=== PATIENT | male | born 1945 | race Caucasian/White ===

== ENCOUNTER 2017-08-10 20:17 | Inpatient (IN) | payer MEDICARE, OTHER ==
--- NOTE | ~2017-08-10 | HEMODYNAMI ---
PATIENT:NISREEN GAR MEDICAL RECORD: [id number] : 43 [id number] ADMISSION DATE: 08/10/17 Generatedon:08/11/201710:02 Patient name: NISREEN GAR Patient #: [id number] SSN: : 1945 Date of study: 08/11/2017 Page: Of Hemodynamic Procedure Report Patient Data Patient Demographics Procedure consent was obtained First Name: NISREEN Gender: Male Last Name: RIN : 1945 [facility] Initial: R Age: 72 year(s) Patient #: [id number] Race: Unknown Additional ID: [id number] Contact details Address: [address] [place] [address] State: [place] City: [facility] Zip code: [address] Past Medical History Allergies Allergen Reaction Date Comments Reported Other allergy 08/11/2017 Metronidazole, oxycodone, Hydrocodone Admission Admission Data Admission Date: 08/10/2017 Admission Time: 23:14 Admit Source: Emergency department Room #: D.2121 Lab Results Lab Result Date: 08/11/2017 Lab Result Time: 3:05 Biochemistry Name Units Result Min Max BUN mg/dl 30 --(----)-* 7 18 Creatinine mg/dl 1.6 --(----)-* 0.6 1.3 CBC Name Units Result Min Max Hematocrit % 43.7 --(*---)-- 42 54 Hemoglobin g/dl 14.2 --(*---)-- 13.5 17.5 Procedure Procedure Types Cath Procedure Diagnostic Procedure LHC LH w/Coronaries PCI Procedure Coronary Stent Initial x2 Miscellaneous Procedures Moderate Sedation up to 45 minutes Procedure Description Procedure Date Procedure Date: 08/11/2017 Procedure Start Time: 9:17 Procedure End Time: 9:58 Procedure Staff Name Function Guillaume Prakash MD Performing Physician Zeke Castellanos RN Nurse Alberto Martinez RT Scrub Gabriel Montes RT Monitor Procedure Data Cath Procedure Fluoroscopy Diagnostic fluoroscopy Total fluoroscopy Time: time: 10.2 min 10.2 min Diagnostic fluoroscopy Total fluoroscopy dose: dose: 1633 mGy 1633 mGy Contrast Material Contrast Material Type Amount (ml) Isovue 300 218 Entry Location Entry Primary Successful Side Size Upsize Upsize Entry Closure Succes sful Closure Location (Fr) 1 (Fr) 2 (Fr) Remarks Device Remarks Femoral Right 5 Fr 6 Fr Exoseal artery Short Estimated blood loss: 10 ml Diagnostic catheters Device Type Used For End Catheter Placement Cordis 5Fr 3DRC Catheter Procedure (MP) Cordis 5Fr JL 4.0 Procedure Catheter (MP) Cordis 5Fr Pigtail Procedure Catheter (MP) Procedure Complications No complications Procedure Medications Medication Administration Route Dosage Oxygen NC 2 l/min Lidocaine 2% added to field 20 Heparin Flush Bag added to field 2 bags (1000units/500ml NS) 0.9% NaCl I.V. 200 ml/hr Versed I.V. 1 mg Fentanyl I.V. 50 mcg Versed I.V. 0.5 mg Fentanyl I.V. 25 mcg Heparin Bolus I.V. 9000 units Versed I.V. 0.5 mg Fentanyl I.V. 25 mcg Plavix P.O. 600 mg Hemodynamics Rest HGB: 14.2 (g/dl) Heart Rate: 64 (bpm) Pressure Samples Time Site Value (mmHg) Purpose Heart Use Rate(bpm) 9:25 AO 201/31(54) Snapshot 63 9:25 AO 134/74(96) Snapshot 68 9:28 LV 133/14,24 EDP 66 9:30 AO 136/73(98) Pullback 72 9:30 LV 116/10,22 Pullback 72 Gradients Valve Time Site 1 Site 2 Mean SEP/DFP Peak To Heart Use (mmHg) (sec/min) Peak Rate (mmHg) (bpm) Aortic 9:30 LV AO 0 1 0 72 116/10,22 136/73(98) Calculations Valve P-P Mean Valve Index Valve Source Name Gradient Area Flow (cm2) Aortic 0 0 0 0 Snapshots Pre Cath Intra NCS Post Cath Vital Signs Time Heart Resp SPO2 etCO2 GM1locu NIBP (mmHg) Rhythm Pain Sedation Rate (ipm) (%) (mmHg) (mmHg) Status Level (bpm) 9:09:44 65 19 97 0 0 145/79(120) NSR 0 (11) 10(A) , No pain 9:14:29 65 13 93 0 0 117/75(107) NSR 0 (11) 10(A) , No pain 9:19:49 64 15 95 0 0 137/80(106) NSR 0 (11) 10(A) , No pain 9:24:33 62 16 95 0 0 128/80(108) NSR 0 (11) 10(A) , No pain 9:29:12 67 14 94 0 0 125/74(99) NSR 0 (11) 9(A) , No pain 9:33:57 72 15 95 0 0 127/79(105) NSR 0 (11) 9(A) , No pain 9:38:41 70 14 96 0 0 129/74(102) NSR 0 (11) 9(A) , No pain 9:43:26 70 15 97 0 0 134/78(111) NSR 0 (11) 9(A) , No pain 9:48:13 71 16 96 0 0 133/72(111) NSR 0 (11) 9(A) , No pain 9:52:57 72 16 97 0 0 139/75(117) NSR 0 (11) 10(A) , No pain 9:57:44 69 16 96 0 0 138/82(117) NSR 0 (11) 10(A) , No pain Medications Time Medication Route Dose Verified Delivered Reason Notes Effectiveness by by 9:09:36 Oxygen NC 2 Guillaume Buffie used for l/min Vik Castellanos RN procedure 9:10:31 Lidocaine 2% added 20ml Guillaume Buffie for local to vial Vik Castellanos RN anesthetic field 9:10:39 Heparin Flush added 2 Guillaume Buffie used for Bag to bags Vik Castellanos RN procedure (1000units/500ml field NS) 9:10:49 0.9% NaCl I.V. 200 Guillaume Buffie Per physician ml/hr Vik Castellanos RN 9:12:24 Versed I.V. 1 mg Guillaume Buffie for sedation Vik Castellanos RN 9:12:31 Fentanyl I.V. 50 Guillaume Buffie for sedation mcg Vik Castellanos RN 9:23:25 Versed I.V. 0.5 Guillaume Buffie for sedation mg Vik Castellanos RN 9:23:30 Fentanyl I.V. 25 Guillaume Buffie for sedation mcg Vik Castellanos RN 9:35:16 Heparin Bolus I.V. 9000 Guillaume Buffie for verifi ed units Vik Castellanos RN anticoagulation with dr prakash 9:46:45 Versed I.V. 0.5 Guillaume Buffie for sedation mg Vik Castellanos RN 9:46:49 Fentanyl I.V. 25 Guillaume Buffie for sedation mcg Vik Castellanos RN 10:00:29 Plavix P.O. 600 Guillaume Buffie for mg Vik Castellanos RN antiplatelet therapy Procedure Log Time Note 8:37:46 Informed consent obtained and on chart 8:37:49 Admit Source: Emergency department 8:38:05 Diagnostic Cath status Urgent 8:38:08 Time tracking: Call back 8:38:13 Plan of Care:Hemodynamics will remain stable., Cardiac rhythm will remain stable., Comfort level will be maintained., Respiratory function will remain adequate., Patient/ family verbilizes understanding of procedure., Procedure tolerated without complication., Recovers from procedure without complications.. 8:38:18 H&P Date Dictated: 08/11/2017 New H&P dictated by physician.. 8:39:16 Lab Result : BUN 30 mg/dl 8:39:16 Lab Result : Hemoglobin 14.2 g/dl 8:39:16 Lab Result : Creatinine 1.6 mg/dl 8:39:16 Lab Result : Hematocrit 43.7 % 8:39:23 Alberto Martinez RT(R) sent for patient. Start room use. 8:54:12 Patient received from Med II to CCL 1 Alert and oriented. Tansferred to table in Supine position. 8:54:13 Warm blankets applied, and romulo hugger turned on for patient comfort. 8:54:13 Correct patient and procedure confirmed by team. 8:54:14 ECG and BP/O2 sat monitors applied to patient. 8:54:15 Pre-procedure instructions explained to patient. 8:54:16 Pre-op teaching completed and patient verbalized understanding. 8:54:19 Family in patients room. 8:54:20 Patient NPO since Midnight. 9:08:48 Vital chart was started 9:09:36 Oxygen 2 l/min NC was administered by Zeke Castellanos RN; used for procedure; 9:09:36 Patient allergic to Other allergyMetronidazole, oxycodone, Hydrocodone 9:09:39 Is the patient allergic to Iodine/contrast media? No. 9:09:40 Is patient on blood thinner?No 9:09:41 Patient diabetic? No. 9:09:44 Previous problem with sedation/anesthesia? No ? 9:09:46 Snore? Yes 9:09:47 Sleep apnea? No 9:09:48 Deviated septum? No 9:09:50 Opens mouth fully? Yes 9:09:51 Sticks out tongue? Yes 9:10:31 Lidocaine 2% 20ml vial added to field was administered by Zeke Castellanos RN; for local anesthetic; 9:10:38 Airway obstruction? Yes H lobectomy 9:10:39 Heparin Flush Bag (1000units/500ml NS) 2 bags added to field was administered by Zeke Castellanos RN; used for procedure; 9:10:48 Dentures? Yes in tight 9:10:49 0.9% NaCl 200 ml/hr I.V. was administered by Zeke Castellanos RN; Per physician; 9:11:02 Pre procedure: right dorsailis pedis pulse Inaccessible 9:11:06 Patient pain scale 3/10 ?. 9:11:14 IV patent on arrival in right antecubital with 0.9% NaCl at [facility]. 9:11:17 Lab results completed and on chart. 9:11:20 Right groin area was prepped with chlora-prep and draped in sterile fashion 9:11:39 Alarms reviewed by R. N. 9:11:39 Sharps counted by scrub and verified by R.N. 9:11:42 Use device set Femoral Dx 9:11:44 Tegaderm 4 x 4 opened to sterile field. 9:11:45 Acist Manifold opened to sterile field. 9:11:46 Acist Hand Control opened to sterile field. 9:11:47 Acist Syringe opened to sterile field. 9:11:47 Bag Decanter opened to sterile field. 9:11:48 Medline Cath Pack opened to sterile field. 9:11:48 Terumo 5Fr [facility] [place] Sheath opened to sterile field. 9:11:49 St Charlie 260cm J .035 wire opened to sterile field. 9:11:50 Diagnostic Infinity 5Fr Multipack catheter opened to sterile field. 9:11:55 Baseline sample Acquired. 9:12:00 Rhythm: sinus rhythm 9:12:02 Full Disclosure recording started 9:12:09 Physician arrived 9:12:11 --------ALL STOP TIME OUT------ 9:12:11 Final Timeout: patient, procedure, and site verified with staff and physician. All members of the team are in agreement. 9:12:13 Right groin site verified by team. 9:12:15 Physical assessment completed. ASA score P 3 - A patient with severe systemic disease as per Guillaume Prakash MD. 9:12:18 Sedation plan: IV Moderate Sedation Versed, Fentanyl 9:12:24 Versed 1 mg I.V. was administered by Zeke Castellanos RN; for sedation; 9::31 Fentanyl 50 mcg I.V. was administered by Zeke Castellanos RN; for sedation; 9:15:31 Zero performed for pressure channel P1 9:17:35 Procedure started. 9:17:37 Local anesthetic to right femoral artery with Lidocaine 2% by Guillaume Prakash MD.INITIAL ACCESS ONLY 9:18:25 A 5 Fr sheath was inserted into the Right Femoral artery 9:21:06 A Cordis 5Fr 3DRC Catheter (MP) was advanced over the wire and used for Procedure. 9:22:12 Terumo ANGLE 260cm glide wire opened to sterile field. 9:22:22 Terumo TORQUE DEVICE PLASTIC .038 opened to sterile field. 9:22:49 glide wire advanced. 9:23:01 Wire removed. 9:23:25 Versed 0.5 mg I.V. was administered by Zeke Castellanos RN; for sedation; 9:23:29 RCA angiography performed. 9:23:30 Fentanyl 25 mcg I.V. was administered by Zeke Castellanos RN; for sedation; 9:27:15 Catheter exchanged over wire. 9:27:19 A Cordis 5Fr JL 4.0 Catheter (MP) was advanced over the wire and used for Procedure. 9:27:22 LCA angiography performed. 9:27:24 Catheter exchanged over wire. 9:27:28 A Cordis 5Fr Pigtail Catheter (MP) was advanced over the wire and used for Procedure. 9:28:53 LV gram done using MAGAÑA 9::55 Injector settings: Ml/sec: 10, Volume: 20, 9:28:57 LV hemodynamics recorded. 9:30:10 EF : 45 % 9:30:35 Catheter removed. 9:31:16 High Pressure Extension Tubing (Vik) opened to sterile field. 9:31:17 Read BMW [place] 2 J-tip 300cm 0.014 guide wir opened to sterile field. 9:31:18 LookFlow BasixCompak Inflation Kit opened to sterile field. 9:31:19 Terumo 6Fr [facility] [place] Sheath opened to sterile field. 9:31:27 Cordis 6FR XBLAD 3.5 guide catheter opened to sterile field. 9:33:34 Sheath upsized to a 6 Fr Short. 9:33:41 6 Fr XBLAD 3.5 guide catheter was inserted over the wire 9:33:48 BMW wire advanced. 9:35:16 Heparin Bolus 9000 units I.V. was administered by Zeke Castellanos RN; for anticoagulation; verified with dr prakash 9:36:35 Wire advanced across lesion. 9:37:28 Inflation number: 1 A [place] Sci [place] 2.0 X 20 balloon was prepped and advanced across the Mid LAD, then inflated to 14 JEANINE for 0:18 (min:sec). 9:37:48 Inflation number: 2 The [place] Sci [place] 2.0 X 20 balloon was reinflated across the Mid LAD, to 14 JEANINE for 0:14 (min:sec). 9:38:54 Inflation number: 3 The [place] Sci [place] 2.0 X 20 balloon was reinflated across the Mid LAD, to 12 JEANINE for 0:18 (min:sec). 9:40:41 Balloon removed over the wire. 9:42:07 Inflation Number: 4 A Medtronic Integrity 2.5 X 26 stent was prepped and advanced across the Mid LAD. The stent was deployed at 12 JEANINE for 0:10 (min:sec). 9:42:14 Stent catheter was removed intact over wire. 9:44:55 Inflation Number: 5 A Medtronic Integrity 2.75 X 12 stent was prepped and advanced across the Mid LAD. The stent was deployed at 12 JEANINE for 0:10 (min:sec). 9:45:44 Wire redirected to CX. 9:46:29 Wire advanced across lesion. 9:46:45 Versed 0.5 mg I.V. was administered by Zeke Castellanos RN; for sedation; 9:46:49 Fentanyl 25 mcg I.V. was administered by Zeke Castellanos RN; for sedation; 9:47:17 Inflation number: 1 The stent balloon was then re-inflated across the Dist CX to 8 JEANINE for 0:12 (min:sec). 9:47:34 Stent catheter was removed intact over wire. 9:51:08 Inflation Number: 2 A Health in Reachtronic Integrity 3.0 X 30 stent was prepped and advanced across the Dist CX. The stent was deployed at 12 JEANINE for 0:13 (min:sec). 9:51:50 Stent catheter was removed intact over wire. 9:51:54 Wire removed. 9:51:54 Guide catheter removed. 9:52:00 Cordis 6Fr Exoseal opened to sterile field. 9:52:11 Sheath removed intact; hemostasis achieved with Exoseal to the Right Femoral artery. 9:52:12 Procedure ended.(Physican Out) 9:53:34 Fluoroscopy time 10.20 minutes. 9:53:38 Fluoroscopy dose: 1633 mGy 9:53:38 Flurop Dose total: 1633 9:53:42 Contrast amount:Isovue 300 218ml. 9:53:43 Sharps counted by scrub and verified by R.N. 9:53:44 Insertion/operative site no bleeding no hematoma. 9:53:47 Post-op/insertion site Right Femoral artery dressed using a 4 x 4 and Tegaderm. 9:53:51 Post right femoral artery:stable, soft, clean and dry 9:53:52 Post Procedure Pulses reassessed and unchanged 9:53:55 Post-procedure physical assessment completed. ASA score P 3 - A patient with severe systemic disease as per Guillaume Prakash MD. 9:53:58 Post procedure rhythm: unchanged. 9:54:01 Estimated blood loss: 10 ml 9:54:03 Post procedure instruction explained to patient.Patient verbalizes understanding. 9:54:03 Patient needs reinforcement of post procedure teaching. 9:54:16 Procedure type changed to Cath procedure, Diagnostic procedure, LHC, LHC w/Coronaries, PCI procedure, Coronary Stent Initial x2, Miscellaneous Procedures, Moderate Sedation up to 45 minutes 9:58:07 Procedure and supply charges have been captured, reviewed, submitted and are correct. 9:58:09 Procedure Complication : No complications 9:58:11 Vital chart was stopped 9:58:11 See physician's report for complete and final results. 9:58:12 Report given to PCU. 9:58:18 Patient transfered to PCU with Stretcher. 9:58:20 Procedure ended. 9:58:20 Full Disclosure recording stopped 9:59:06 End room use (Document Last) 10:00:29 Plavix 600 mg P.O. was administered by Zeke Castellanos RN; for antiplatelet therapy; Intervention Summary Intervention Notes Time ActionType Lesion and Equipment Action# Pressure Duration Attributes Used 9:37:28 Inflate Mid LAD [place] 1 14 00:18 balloon Sci [place] 2.0 X 20 balloon 9:37:48 Reinflate Mid LAD [place] 2 14 00:14 balloon Sci [place] 2.0 X 20 balloon 9:38:54 Reinflate Mid LAD [place] 3 12 00:18 balloon Sci [place] 2.0 X 20 balloon 9:42:07 Place stent Mid LAD Medtronic 4 12 00:10 Integrity 2.5 X 26 stent 9:44:55 Place stent Mid LAD Medtronic 5 12 00:10 Integrity 2.75 X 12 stent 9:47:17 Reinflate Dist CX Medtronic 1 8 00:12 stent Integrity balloon 2.75 X 12 stent 9:51:08 Place stent Dist CX Medtronic 2 12 00:13 Integrity 3.0 X 30 stent Device Usage Item Name Manufacture Quantity Catalog Number Hospital Part Current [facility] Lot# / Charge Number Stock Stock Serial# Code Tegaderm 4 1 [id number] 556080 842636 5 x 4 Acist Acist 1 13640 609706 262385 698513 5 [employer] Inc Acist Hand Acist 1 58803 899717 433012 097396 5 Control Medical Systems Inc Acist Acist 1 91769 004395 493922 110644 20 Syringe Medical Systems Mosaic [employer] Systems Bag Microtek 1 2001S 055747 07040 671805 5 Doctor Fun. Medline Cardinal 1 [id number] 368585 16719 071356 5 HYLT Aviation Terumo 5Fr Terumo 1 [id number] 302580 674131 003898 [address] [facility] Charlie 1 [id number] 486125 086306 598677 30 260cm J .035 wire Diagnostic Cardinal 1 [id number] 296110 66065 674358 30 Infinity Health 5Fr Multipack catheter Cordis 5Fr Cardinal 1 082058 5 3DRC Health Catheter (MP) Terumo Terumo 1 [id number] 387465 892220 945376 5 ANGLE 260cm glide wire Terumo [place] 1 TD01 205168 960304 595043 5 TORQUE Scientific DEVICE PLASTIC .038 Cordis 5Fr Cardinal 1 469511 5 JL 4.0 Health Catheter (MP) Cordis 5Fr Cardinal 1 083910 5 Pigtail Health Catheter (MP) High Merit 1 [id number] 520083 37570 751012 10 Pressure Medical Extension Tubing (Prakash) Read BMW Read 1 [id number] 240790 967516 851306 5 [place] 2 Vascular J-tip 300cm 0.014 guide wir Merit Merit 1 [id number] 941932 042806 286465 15 BasixCompak Medical Inflation Kit Terumo 6Fr Terumo 1 [id number] 048995 683968 487454 40 [facility] Sheath Cordis 6FR Cardinal 1 [id number] 216020 550571 325332 10 XBLAD 3.5 Health guide catheter [place] Sci [place] 1 [id number] 235277 070011 949506 1 [id number] Enhatch [employer] 2.0 X 20 balloon Medtronic Medtronic 1 [id number] 311133 048020 0 [id number] Integrity 2.5 X 26 stent Medtronic Medtronic 1 [id number] 506695 752500 4 [id number] Integrity 2.75 X 12 stent Medtronic Medtronic 1 [id number] 384429 943867 0 [id number] Integrity 3.0 X 30 stent Cordis 6Fr Cardinal 1 [id number] 517602 236797 660018 10 Big Fish Signature Audit [place] Stage Time Signature Unsigned Intra-Procedure 08/11/2017 Gabriel Montes 10:02:13 AM RT(R) Signatures Monitor : Gabriel Montes RT Signature : Date : Time : [facility] [address] [place] [id number]
--- NOTE | ~2017-08-10 | HEMODYNAMI ---
PATIENT:NISREEN GAR MEDICAL RECORD: [id number] : 43 LOCATION:[facility] D.2121 [id number] ADMISSION DATE: 08/10/17 Generatedon:08/13/20177:59 Patient name: NISREEN GAR Patient #: [id number] SSN: : 1945 Date of study: 08/13/2017 Page: Of Hemodynamic Procedure Report Patient Data Patient Demographics Procedure consent was obtained First Name: NISREEN Gender: Male Last Name: RIN : 1945 [facility] Initial: R Age: 72 year(s) Patient #: [id number] Race: Unknown Additional ID: [id number] Contact details [address]: [address] [place] [address] State: [place] City: [facility] Zip code: [address] Past Medical History Allergies Allergen Reaction Date Comments Reported Other allergy 08/11/2017 Metronidazole, oxycodone, Hydrocodone Admission Admission Data Admission Date: 08/10/2017 Admission Time: 23:14 Admit Source: Emergency department Room #: D.2121 Lab Results Lab Result Date: 08/11/2017 Lab Result Time: 3:05 Biochemistry Name Units Result Min Max BUN mg/dl 30 --(----)-* 7 18 Creatinine mg/dl 1.6 --(----)-* 0.6 1.3 CBC Name Units Result Min Max Hematocrit % 43.7 --(*---)-- 42 54 Hemoglobin g/dl 14.2 --(*---)-- 13.5 17.5 Procedure Procedure Types Cath Procedure PCI Procedure Coronary Stent Initial Miscellaneous Procedures Moderate Sedation up to 30 minutes Procedure Description Procedure Date Procedure Date: 08/13/2017 Procedure Start Time: 7:40 Procedure End Time: 7:59 Procedure Staff Name Function Guillaume Chery MD Performing Physician Torrie Ruiz RT Monitor Alberto Martinez RT Scrub Suzanne Castillo RT Scrub Tim Malcolm RN Nurse Procedure Data Cath Procedure Fluoroscopy Diagnostic fluoroscopy Total fluoroscopy Time: 5.6 time: 5.6 min min Diagnostic fluoroscopy Total fluoroscopy dose: 485 dose: 485 mGy mGy Contrast Material Contrast Material Type Amount (ml) Isovue 300 58 Entry Location Entry Primary Successful Side Size Upsize Upsize Entry Closure Succes sful Closure Location (Fr) 1 (Fr) 2 (Fr) Remarks Device Remarks Femoral Left 6 Fr Exoseal artery Short Estimated blood loss: 10 ml Procedure Complications No complications Procedure Medications Medication Administration Route Dosage 0.9% NaCl I.V. 100 ml/hr Oxygen NC 2 l/min Lidocaine 2% added to field 20 Heparin Flush Bag added to field 2 bags (1000units/500ml NS) Versed I.V. 1 mg Fentanyl I.V. 50 mcg Heparin Bolus 8900 units Hemodynamics Rest HGB: 14.2 (g/dl) Heart Rate: 70 (bpm) Snapshots Pre Cath Intra NCS Post Cath Vital Signs Time Heart Resp SPO2 etCO2 MR1hqkr NIBP (mmHg) Rhythm Pain Sedation Rate (ipm) (%) (mmHg) (mmHg) Status Level (bpm) 7:25:26 68 28 100 0 0 184/101(150) NSR 0 (11) 10(A) , No pain 7:30:21 68 19 100 0 0 169/93(144) NSR 0 (11) 10(A) , No pain 7:35:05 63 14 96 0 0 149/79(110) NSR 0 (11) 10(A) , No pain 7:39:50 64 13 96 0 0 140/83(115) NSR 0 (11) 9(A) , No pain 7:44:35 66 16 97 0 0 156/79(133) NSR 0 (11) 9(A) , No pain 7:49:22 71 15 97 0 0 152/71(108) NSR 0 (11) 9(A) , No pain 7:54:06 68 14 97 0 0 149/84(125) NSR 0 (11) 9(A) , No pain 7:58:53 68 18 97 0 0 155/84(123) NSR 0 (11) 9(A) , No pain Medications Time Medication Route Dose Verified Delivered Reason Notes Effectiveness by by 7:25:09 0.9% NaCl I.V. 100 Tim Tim Per physician ml/hr Yun Malcolm RN RN 7:25:25 Oxygen NC 2 Tim Tim Per physician l/min Yun Malcolm RN RN 7:25:44 Lidocaine 2% added 20ml Tim Tim for local to vial Yun Malcolm anesthetic field RN RN 7:26:04 Heparin Flush added 2 Tim Tim used for Bag to bags Yun Malcolm procedure (1000units/500ml field RN RN NS) 7:30:33 Versed I.V. 1 mg Tim Tim for sedation Yun Malcolm RN RN 7:30:47 Fentanyl I.V. 50 Tim Tim for sedation mcg Yun Malcolm RN RN 7:46:01 Heparin Bolus 8900 Tim Tim for units Yun Malcolm anticoagulation RN music therapist [employer] Log Time Note 7:00:49 Suzanne Castillo RT(R) sent for patient. Start room use. 7:09:50 Time tracking: Regular hours 7:09:55 Plan of Care:Hemodynamics will remain stable., Cardiac rhythm will remain stable., Comfort level will be maintained., Respiratory function will remain adequate., Patient/ family verbilizes understanding of procedure., Procedure tolerated without complication., Recovers from procedure without complications.. 7:17:35 Patient received from PCU to CCL 1 Alert and oriented. Tansferred to table in Supine position. 7:17:36 Warm blankets applied, and romulo hugger turned on for patient comfort. 7:17:37 Correct patient and procedure confirmed by team. 7:17:38 Signed procedure consent form obtained from patient. 7:17:39 ECG and BP/O2 sat monitors applied to patient. 7:24:24 Vital chart was started 7:25:09 0.9% NaCl 100 ml/hr I.V. was administered by Tim Malcolm RN; Per physician; 7:25:25 Oxygen 2 l/min NC was administered by Tim Malcolm RN; Per physician; 7:25:44 Lidocaine 2% 20ml vial added to field was administered by Tim Malcolm RN; for local anesthetic; 7:25:44 Rhythm: sinus rhythm 7:25:46 Full Disclosure recording started 7:25:56 H&P Date Dictated: 08/12/2017 Within 30 days and on chart.. 7:25:57 Pre-procedure instructions explained to patient. 7:25:58 Pre-op teaching completed and patient verbalized understanding. 7:25:59 Family in waiting room. 7:26:02 Patient NPO since Midnight. 7:26:04 Heparin Flush Bag (1000units/500ml NS) 2 bags added to field was administered by Tim Malcolm RN; used for procedure; 7:26:05 Baseline sample Acquired. 7:26:17 Is the patient allergic to Iodine/contrast media? No. 7:27:05 Is patient on blood thinner?Yes 7:27:07 ACC The patient was administered the following blood thiners within the last 24 hours: ACCAspirin, ACCPlavix 7:27:33 Patient diabetic? No. 7:27:37 Previous problem with sedation/anesthesia? No ? 7:27:39 Snore? Yes 7:27:40 Sleep apnea? No 7:27:41 Deviated septum? No 7:27:41 Opens mouth fully? Yes 7:27:42 Sticks out tongue? Yes 7:27:53 Airway obstruction? Yes Lobectomy 7:27:57 Dentures? Yes IN 7:28:00 Pre procedure: left dorsailis pedis pulse 1+ Palpable, but thready & weak; easily obliterated 7:28:03 Patient pain scale 0/10 ?. 7:28:10 IV patent on arrival in right forearm with 0.9% NaCl at [facility]. 7:28:42 Lab results completed and on chart. 7:28:45 Left groin area was prepped with chlora-prep and draped in sterile fashion 7:28:45 Alarms reviewed by R. N. 7:28:46 Sharps counted by scrub and verified by R.N. 7:28:50 Use device set Femoral PCI 7:28:51 Acist Syringe opened to sterile field. 7:28:52 Acist Hand Control opened to sterile field. 7:28:52 Bag Decanter opened to sterile field. 7:28:52 Medline Cath Pack opened to sterile field. 7:28:53 Terumo 6Fr Fitzwilliam Sheath opened to sterile field. 7:28:53 St Charlie 260cm J .035 wire opened to sterile field. 7:28:53 Merit BasixCompak Inflation Kit opened to sterile field. 7:28:53 Acist Manifold opened to sterile field. 7:28:54 Tegaderm 4 x 4 opened to sterile field. 7:29:03 Read BMW [place] 2 J-tip 300cm 0.014 guide wir opened to sterile field. 7:29:04 High Pressure Extension Tubing (Chery) opened to sterile field. 7:29:09 Final Timeout: patient, procedure, and site verified with staff and physician. All members of the team are in agreement. 7:29:11 Left groin site verified by team. 7:29:14 Physical assessment completed. ASA score P 2 - A patient with mild systemic disease as per Guillaume Chery MD. 7:29:16 Sedation plan: IV Moderate Sedation Versed, Fentanyl 7:30:33 Versed 1 mg I.V. was administered by Tim Malcolm RN; for sedation; 7:30:47 Fentanyl 50 mcg I.V. was administered by Tim Malcolm RN; for sedation; 7:36:13 Zero performed for pressure channel P1 7:36:17 Zero performed for pressure channel P1 7:36:19 Zero performed for pressure channel P1 7:40:30 Medtronic Launcher 6Fr AR 1.0 guide catheter opened to sterile field. 7:40:36 Procedure started. 7:40:56 Local anesthetic to left femerol artery with Lidocaine 2% by Guillaume Chery MD.INITIAL ACCESS ONLY 7:41:46 A 6 Fr Short sheath was inserted into the Left Femoral artery 7:42:33 6 Fr AR 1.0 guide catheter was inserted over the wire 7:45:07 BMW wire advanced. 7:46:01 Heparin Bolus 8900 units was administered by Tim Malcolm RN; for anticoagulation; 7:48:18 Inflation Number: 1 A Medtronic Integrity 3.0 X 30 stent was prepped and advanced across the Mid RCA. The stent was deployed at 14 JEANINE for 0:19 (min:sec). 7:49:05 Stent catheter was removed intact over wire. 7:52:59 Inflation Number: 2 A Medtronic Integrity 3.5 X 15 stent was prepped and advanced across the Mid RCA. The stent was deployed at 14 JEANINE for 0:15 (min:sec). 7:53:28 Inflation number: 3 The stent balloon was then re-inflated across the Mid RCA to 12 JEANINE for 0:13 (min:sec). 7:53:53 Stent catheter was removed intact over wire. 7:53:54 Wire removed. 7:53:54 Guide catheter removed. 7:54:07 Sheath removed intact; hemostasis achieved with Exoseal to the Left Femoral artery. 7:54:14 Cordis 6Fr Exoseal opened to sterile field. 7:54:17 Procedure ended.(Physican Out) 7:54:34 Fluoroscopy time 05.60 minutes. 7:54:56 Flurop Dose total: 485 7:54:56 Fluoroscopy dose: 485 mGy 7:54:59 Contrast amount:Isovue 300 58ml. 7:55:01 Sharps counted by scrub and verified by R.N. 7:55:02 Insertion/operative site no bleeding no hematoma. 7:55:06 Post-op/insertion site Left Femoral artery dressed using a 4 x 4 and Tegaderm. 7:55:09 Post left femerol artery:stable, clean and dry 7:55:11 Post Procedure Pulses reassessed and unchanged 7:55:15 Post-procedure physical assessment completed. ASA score P 2 - A patient with mild systemic disease as per Guillaume Chery MD. 7:55:30 Post procedure rhythm: unchanged. 7:55:33 Estimated blood loss: 10 ml 7:55:34 Post procedure instruction explained to patient.Patient verbalizes understanding. 7:55:34 Patient needs reinforcement of post procedure teaching. 7:55:41 Procedure type changed to Cath procedure, PCI procedure, Coronary Stent Initial, Miscellaneous Procedures, Moderate Sedation up to 30 minutes 7:55:46 Procedure Complication : No complications 7:55:48 See physician's report for complete and final results. 7:56:52 Procedure and supply charges have been captured, reviewed, submitted and are correct. 7:58:36 Vital chart was stopped 7:58:39 Report given to PCU. 7:58:42 Patient transfered to PCU with Bed. 7:59:00 Procedure ended. 7:59:00 Full Disclosure recording stopped 7:59:03 End room use (Document Last) Intervention Summary Intervention Notes Time ActionType Lesion and Equipment Action# Pressure Duration Attributes Used 7:48:18 Place stent Mid RCA Medtronic 1 14 00:19 Integrity 3.0 X 30 stent 7:52:59 Place stent Mid RCA Medtronic 2 14 00:15 Integrity 3.5 X 15 stent 7:53:28 Reinflate Mid RCA Medtronic 3 12 00:13 stent Integrity balloon 3.5 X 15 stent Device Usage Item Name Manufacture Quantity Catalog Hospital Part Current Minimal L ot# / Number Charge Number Stock Stock Serial# Code Acist Acist 1 [id number] 295934 212486 [id number] 20 Syringe Medical Systems Inc Acist Hand Acist 1 79929 241323 590975 463193 5 Control Medical Systems Inc Bag Microtek 1 2002S 826267 69190 679574 5 Decanter Medical Inc. Medline Cardinal 1 [id number] 212622 76913 469863 5 Cath Pack Health Terumo 6Fr Terumo 1 [id number] 770693 242233 805928 [address] Charlie 1 839229 809591 666141 240587 30 260cm J .035 wire Merit Merit 1 [id number] 208604 099250 083110 15 BasixPerlegen Sciencesk Medical Inflation Kit Acist Acist 1 15821 835220 453570 505938 5 Manifold Medical Systems Inc Tegaderm 4 3M 1 1626W 983285 692371 300871 5 x 4 Read BMW Read 1 [id number] 698108 647506 602127 5 [place] 2 Vascular J-tip 300cm 0.014 guide wir High Merit 1 [id number] 116073 98145 768598 10 Pressure Medical Extension Tubing (Chery) Medtronic Medtronic 1 [id number] 849341 44428 429423 1 Launcher 6Fr AR 1.0 guide catheter Medtronic Medtronic 1 [id number] 745141 623111 1 0 [id number] Integrity 3.0 X 30 stent Medtronic Medtronic 1 [id number] 917334 876642 1 0 [id number] Integrity 3.5 X 15 stent Cordis 6Fr Cardinal 1 [id number] 247517 496415 573306 10 [facility] Health Signature Audit Orange Stage Time Signature Unsigned Intra-Procedure 08/13/2017 Torrie 7:59:13 AM Counts RT(R) Signatures Monitor : Torrie Signature : Counts RT Date : Time : [facility] [address] [place] [address]
[2017-08-10 20:51] LABS: BASOPHILS 0.5 % (0-2); HEMATOCRIT 44.2 % (42.0-54.0); HEMOGLOBIN 14.4 g/dL (13.5-17.5); IMMATURE GRANULOCYTES 0.6 % (0-5); LYMPHOCYTES 19.6 % (15-50); MCH 28.9 pg (26.0-34.0); MCHC 32.6 g/dL (31.0-37.0); MCV 88.8 fL (80.0-100.0); MEAN PLATELET VOLUME 9.7 fL (7.4-10.4); MONOCYTES 4.1 % (2-11); NEUTROPHILS 72.2 % (40-80); PLATELET COUNT 136 10x3/uL (130-400); RBC 4.98 10x6/uL (4.20-6.10); WBC 6.3 10x3/uL (4.8-10.8)
[2017-08-10 21:05] LABS: ALBUMIN 3.7 g/dL (3.4-5.0); ALKALINE PHOSPHATASE 29 U/L (46-116); ALT (SGPT) 38 U/L (10-68); BILIRUBIN - TOTAL 0.42 mg/dL (0.2-1.3); CALC OSMOLALITY 283 mosm/kg (275-300); CALCIUM 9.4 mg/dL (8.5-10.1); CARBON DIOXIDE 24.1 mmol/L (21.0-32.0); CHLORIDE - SERUM 106 mmol/L (98-107); CREATININE - SERUM 1.6 mg/dL (0.6-1.3); GLUCOSE 107 mg/dL (74-106); POTASSIUM - SERUM 3.7 mmol/L (3.5-5.1); PROTEIN - SERUM 6.8 g/dL (6.4-8.2); SODIUM 140 mmol/L (136-145); UREA NITROGEN 27 mg/dL (7-18); eGFR NON AFRICAN AMERICAN 45 mL/min (90-120)
[2017-08-10 21:20] LABS: CHOL - HDL RATIO 4.9 ratio (2.3-4.9); CHOLESTEROL, TOTAL 178 mg/dL (0-200); CKMB 8.8 U/L (0.0-3.6); CREATINE KINASE 133 UL (21-232); HDL CHOLESTEROL 36 mg/dL (32-96); LDL CHOLESTEROL 101 mg/dL (0-100); LDL-HDL RATIO 2.8 ratio (1.5-3.5); TRIGLYCERIDE 208 mg/dL (30-200)
[2017-08-10 21:23] LABS: TROPONIN-I 1.101 ng/mL (0.000-0.060)
[2017-08-10 22:41] LABS: APTT 27.5 SECONDS (22.8-39.4); INR 0.99 (0.85-1.17); PROTIME 12.9 SECONDS (11.6-15.0)
[2017-08-11] VITALS: BP 136/82
[2017-08-11] MEDS ORDERED: MULTIPLE VITAMI1 TA1 PO (00:52)
[2017-08-11] MEDS ORDERED: AGGRENOX 200/251 CAP PO (00:52)
[2017-08-11] MEDS ORDERED: CELEBREX50 MG PO (00:52)
[2017-08-11] MEDS ORDERED: LOSARTAN POTASS25 MG PO (00:53)
[2017-08-11] MEDS ORDERED: DYAZIDE 37.5/251 CAP PO (00:53)
[2017-08-11] MEDS ORDERED: NIASPAN500 MG PO (00:54)
[2017-08-11] MEDS ORDERED: TRICOR145 MG PO (00:54)
--- NOTE | 2017-08-11 03:18 | NUR ---
RESTING WITH EYES CLOSED, RESPERATIONS EVEN, NO S/S DISTRESS NOTED.
--- NOTE | 2017-08-11 03:45 | NUR ---
RESTING WITH EYES CLOSED. RR EVEN U/L. NO S/S OF DISCOMFORT. CL IN REACH.
[2017-08-11 03:47] VITALS: BP 136/82; BMI 28.0
[2017-08-11 04:00] VITALS: BP 134/60
[2017-08-11 04:09] LABS: CKMB 21.7 U/L (0.0-3.6); CREATINE KINASE 197 UL (21-232)
[2017-08-11 04:11] LABS: TROPONIN-I 2.979 ng/mL (0.000-0.060)
--- NOTE | 2017-08-11 07:30 | NUR ---
RECEIVED PT IN BED AAOX4 RESP UNLABORED DENIES ANY NEEDS OR DISCOMFORT STATES I FEEL MUCH BETTER THIS MORNING
[2017-08-11 08:23] LABS: BASOPHILS 0.5 % (0-2); EOSINOPHILS 1.2 % (0-7); HEMATOCRIT 43.7 % (42.0-54.0); HEMOGLOBIN 14.2 g/dL (13.5-17.5); IMMATURE GRANULOCYTES 0.5 % (0-5); MCH 29.2 pg (26.0-34.0); MCHC 32.5 g/dL (31.0-37.0); MCV 89.9 fL (80.0-100.0); MEAN PLATELET VOLUME 10.5 fL (7.4-10.4); MONOCYTES 6.7 % (2-11); NEUTROPHILS 70.1 % (40-80); RBC 4.86 10x6/uL (4.20-6.10); RDW 14.3 % (11.5-14.5)
[2017-08-11 08:25] LABS: CALCIUM 9.1 mg/dL (8.5-10.1); CARBON DIOXIDE 22.5 mmol/L (21.0-32.0); CREATININE - SERUM 1.6 mg/dL (0.6-1.3); PLATELET COUNT 182 10x3/uL (130-400); WBC 8.2 10x3/uL (4.8-10.8)
[2017-08-11 08:26] LABS: POTASSIUM - SERUM 4.5 mmol/L (3.5-5.1)
--- NOTE | 2017-08-11 08:45 | NUR ---
TO STONE GRADER VIA BED
--- NOTE | 2017-08-11 10:20 | NUR ---
RECEIVED PT BACK TO ROOM FROM RESIDENT SERVICES DIRECTOR VIA BED VSS PPPX4 DRSG C/D/I TO RT MARTHA ANGULO NOTED
[2017-08-11 12:00] VITALS: BP 129/56
--- NOTE | 2017-08-11 14:17 | NUR ---
RESTING QUIETLY NAD NOTED
[2017-08-11 15:58] VITALS: BP 143/65
--- NOTE | 2017-08-11 19:00 | NUR ---
RECEIVED REPORT AND ASSUMED PT CARE FROM DAY SHIFT NURSE @ THIS TIME.
[2017-08-11 20:00] VITALS: BP 133/83
--- NOTE | 2017-08-11 23:58 | NUR ---
PT RESTING WELL WITHOUT C/O OR DISTRESS NOTED. FEW NEEDS VOICED. CALL LIGHT WITHIN REACH.
--- NOTE | 2017-08-12 01:04 | NUR ---
PT AWAKENS FROM SLEEP, REPORTS FEELING CHEST PAIN AND RATES @ 7/10 ON PAIN SCALE. MORPHINE 4 MG GIVEN WITH ZOFRAN 4 MG IV. AFTER 10 MINUTES PT REPORTS PAIN AT A 2/10 ON PAIN SCALE. WILL MONITOR.
[2017-08-12 06:33] VITALS: BP 127/61
[2017-08-12 07:07] LABS: CALCIUM 8.5 mg/dL (8.5-10.1); CARBON DIOXIDE 22.8 mmol/L (21.0-32.0); CREATININE - SERUM 1.8 mg/dL (0.6-1.3)
[2017-08-12 07:09] LABS: POTASSIUM - SERUM 4.8 mmol/L (3.5-5.1)
--- NOTE | 2017-08-12 07:30 | NUR ---
RECEIVED PT IN BED AAOX4 RESP UNLABORED PT DENIES ANY NEEDS OR DISCOMFORT AT THIS TIME NAD NOTED
[2017-08-12 08:12] LABS: BASOPHILS 0.2 % (0-2); EOSINOPHILS 2.2 % (0-7); HEMATOCRIT 41.7 % (42.0-54.0); HEMOGLOBIN 13.4 g/dL (13.5-17.5); IMMATURE GRANULOCYTES 0.5 % (0-5); LYMPHOCYTES 21.2 % (15-50); MCH 29.5 pg (26.0-34.0); MCHC 32.1 g/dL (31.0-37.0); MCV 91.6 fL (80.0-100.0); MEAN PLATELET VOLUME 10.7 fL (7.4-10.4); MONOCYTES 7.4 % (2-11); NEUTROPHILS 68.5 % (40-80); PLATELET COUNT 160 10x3/uL (130-400); RBC 4.55 10x6/uL (4.20-6.10); RDW 15.5 % (11.5-14.5); WBC 8.4 10x3/uL (4.8-10.8)
[2017-08-12 09:09] VITALS: BP 127/58
--- NOTE | 2017-08-12 10:32 | NUR ---
RATIONALE FOR SCD'S EXPLAINED. REFUSED SCD'S
[2017-08-12 12:42] VITALS: BP 155/68
[2017-08-12 16:39] VITALS: BP 142/65
[2017-08-12 19:00] VITALS: BP 183/72
[2017-08-13] VITALS: BP 153/68; BP 153/77
[2017-08-13 05:53] LABS: ANION GAP 12.5 mmol/L (8-16); CARBON DIOXIDE 30.2 mmol/L (21.0-32.0); CREATININE - SERUM 1.6 mg/dL (0.6-1.3); POTASSIUM - SERUM 3.7 mmol/L (3.5-5.1)
--- NOTE | 2017-08-13 07:19 | NUR ---
PRE-OPS GIVEN. TO FNPS BY BED.
[2017-08-13 08:00] VITALS: BP 141/75
--- NOTE | 2017-08-13 08:17 | NUR ---
BACK FROM FRANCHISE CONSULTANT. VS WNL. LEFT GROIN STABLE WITHOUT BLEEDING OR HEMATOMA NOTED. WILL MONITOR.
[2017-08-13] MEDS ORDERED: PRAVACHOL20 MG PO (10:03)
[2017-08-13] MEDS ORDERED: PLAVIX75 MG PO (10:04)
--- NOTE | 2017-08-13 12:19 | NUR ---
BACK FROM REGISTERED DIET TECHNICIAN. LEFT GROIN STABLE.
--- NOTE | 2017-08-13 13:09 | NUR ---
BED REST UP. LEFT GROIN STABLE. IV AND TELEMETRY DCD. DC PLANS GIVEN. UNDERSTANDING VOICED. ESCORTED TO CAR BY W/C.
--- NOTE | 2017-08-13 13:31 | NUR ---
Patient Name: INSREEN GAR Admission Status: ER Accout number: [id number] Admission Date: 08-10-2017 : 1945 Admission Diagnosis: Attending: HIMA WHITE Current LOS: 3 Anticipated DC Date: 08-13-2017 Planned Disposition: Home Primary Insurance: MEDICARE A & B LATE ENTRY: Discharge Planning Comments: * Is the patient Alert and Oriented? Yes 0 * How many steps to enter\exit or inside your home? NONE 0 * PCP NONE 0 * Pharmacy [facility] 0 * Preadmission Environment Home Alone 0 * ADLs Independent 0 * Equipment None 0 * Other Equipment NO MEDICAL EQUIPMENT PROVIDER PREFERENCE 0 * List name and contact numbers for known caregivers / representatives who currently or will assist patient after discharge: JANELL OROSCOE, FRIEND, 0 * Community resources currently utilized None 0 * Please name any agencies selected above. NONE 0 * Additional services required to return to the preadmission environment? No 0 * Can the patient safely return to the preadmission environment? Yes 0 * Has this patient been hospitalized within the prior 30 days at any hospital? No 0 CM MET WITH PT IN ROOM TO DISCUSS DISCHARGE PLANNING AND NEEDS. PT REPORTS LIVING AT HOME INDEPENDENTLY AND ALONE. PT HAS NO MEDICAL EQUIPMENT AND NO OUTSIDE SERVICES ASSISTING IN THE HOME. CM DISCUSSED AVAILABILITY OF HOME HEALTH, REHAB SERVICES AND MEDICAL EQUIPMENT. PT DENIES DISCHARGE NEEDS, REPORTS A FRIEND WILL PICK HIM UP TODAY FOR DISCHARGE HOME. IMPORTANT MESSAGE FROM MEDICARE PROVIDED AND EXPLAINED. Teacher [employer]: Max Florez
== END 2017-08-13 13:10 | disposition home or self-care (01) | DRG 248 ==
LOC: D.ER 20:17 → D.M2 23:14
PROVIDERS: Family Medicine; ADMIT Internal Medicine Cardiovascular Disease
PROC: 4A023N7 Measurement of Cardiac Sampling and Pressure, Left Heart, Percutaneous Approach (ICD-10-PCS; 2017-08-11)
PROC: B2111ZZ Fluoroscopy of Multiple Coronary Arteries using Low Osmolar Contrast (ICD-10-PCS; 2017-08-11)
PROC: B2151ZZ Fluoroscopy of Left Heart using Low Osmolar Contrast (ICD-10-PCS; 2017-08-11)
PROC: 02713FZ Dilation of Coronary Artery, Two Arteries with Three Intraluminal Devices, Percutaneous Approach (ICD-10-PCS; principal; 2017-08-11 08:39)
PROC: 02703EZ Dilation of Coronary Artery, One Artery with Two Intraluminal Devices, Percutaneous Approach (ICD-10-PCS; 2017-08-13)
DX: I21.4 Non-ST elevation (NSTEMI) myocardial infarction (principal); I50.21 Acute systolic (congestive) heart failure; I25.119 Atherosclerotic heart disease of native coronary artery with unspecified angina pectoris; M06.9 Rheumatoid arthritis, unspecified; I45.10 Unspecified right bundle-branch block; Z87.891 Personal history of nicotine dependence; Z86.711 Personal history of pulmonary embolism; Z86.73 Personal history of transient ischemic attack (TIA), and cerebral infarction without residual deficits; I11.0 Hypertensive heart disease with heart failure

== ENCOUNTER 2018-01-17 05:55 | Outpatient (CLI) | payer MEDICARE, OTHER ==
[~2018-01-17] VITALS: Ht 177.8 cm; Wt 88.6 kg
--- NOTE | ~2018-01-17 | HEMODYNAMI ---
PATIENT:NISREEN GAR MEDICAL RECORD: [id number] : 43 LOCATION:[facility] ADMISSION DATE: 01/17/18 Generatedon:01/17/20188:38 Patient name: NISREEN GAR Patient #: [id number] SSN: : 1945 Date of study: 01/17/2018 Page: Of Hemodynamic Procedure Report Patient Data Patient Demographics Procedure consent was obtained First Name: NISREEN Gender: Male Last Name: RIN : 1945 Middle Initial: R Age: 72 year(s) Patient #: [id number] Race: Unknown Additional ID: [id number] Contact details Address: [address] [place] [address] State: [place] City: [facility] Zip code: [address] Past Medical History Allergies Allergen Reaction Date Comments Reported Other allergy 08/11/2017 Metronidazole, oxycodone, Hydrocodone Other allergy 01/17/2018 Hydrocodone, Oxycodone, Flaygl Admission Admission Data Admission Date: 01/17/2018 Admission Time: 5:55 Admit Source: Other Lab Results Lab Result Date: 01/17/2018 Lab Result Time: 6:30 Biochemistry Name Units Result Min Max BUN mg/dl 31 --(----)-* 7 18 Creatinine mg/dl 2 --(----)-* 0.6 1.3 CBC Name Units Result Min Max Hematocrit % 45.2 --(-*--)-- 42 54 Hemoglobin g/dl 15 --(-*--)-- 13.5 17.5 Procedure Procedure Types Cath Procedure Diagnostic Procedure [facility] w/Coronaries Sedation Charges Moderate Sedation up to 30 minutes Procedure Description Procedure Date Procedure Date: 01/17/2018 Procedure Start Time: 8:03 Procedure End Time: 8:37 Procedure Staff Name Function Guillaume Chery MD Performing Physician Gabriel Montes RT Monitor Suzanne Castillo RT Scrub Zeke Castellanos RN Nurse Procedure Data Cath Procedure Fluoroscopy Diagnostic fluoroscopy Total fluoroscopy Time: 5.4 time: 5.4 min min Diagnostic fluoroscopy Total fluoroscopy dose: 604 dose: 604 mGy mGy Contrast Material Contrast Material Type Amount (ml) Isovue 300 69 Entry Location Entry Primary Successful Side Size Upsize Upsize Entry Closure Succes sful Closure Location (Fr) 1 (Fr) 2 (Fr) Remarks Device Remarks Femoral Right 5 Fr Exoseal artery Estimated blood loss: 5 ml Diagnostic catheters Device Type Used For End Catheter Placement MULTIPACK JL 4.0 5Fr Procedure catheter MULTIPACK 3DRC 5Fr Procedure catheter MULTIPACK Pigtail 5 Fr Procedure catheter Procedure Complications No complications Procedure Medications Medication Administration Route Dosage Oxygen NC 2 l/min Lidocaine 2% added to field 20 Heparin Flush Bag added to field 2 bags (1000units/500ml NS) 0.9% NaCl I.V. 100 ml/hr Versed I.V. 1 mg Fentanyl I.V. 50 mcg Versed I.V. 1 mg Fentanyl I.V. 50 mcg Fentanyl I.V. 50 mcg Fentanyl I.V. 50 mcg Hemodynamics Rest HGB: 15 (g/dl) Heart Rate: 67 (bpm) Pressure Samples Time Site Value (mmHg) Purpose Heart Use Rate(bpm) 8:27 LV 172/3,20 Snapshot 85 8:27 AO 161/77(115) Pullback 89 8:27 LV 151/0,12 Pullback 89 Gradients Valve Time Site 1 Site 2 Mean SEP/DFP Peak To Heart Use (mmHg) (sec/min) Peak Rate (mmHg) (bpm) Aortic 8:27 LV AO 0 9 0 89 151/0,12 161/77(115) Calculations Valve P-P Mean Valve Index Valve Source Name Gradient Area Flow (cm2) Aortic 0 0 0 0 Snapshots Pre Cath Intra NCS Post Cath Vital Signs Time Heart Resp SPO2 etCO2 NIBP (mmHg) Rhythm Pain Sedation Rate (ipm) (%) (mmHg) Status Level (bpm) 7:49:12 75 22 97 27.7 162/89(138) NSR 0 (11) 10(A) , No pain 7:54:03 72 19 99 31.5 172/97(146) NSR 0 (11) 10(A) , No pain 7:58:48 74 17 94 32.8 141/92(114) NSR 0 (11) 10(A) , No pain 8:03:28 80 17 94 28.9 146/100(126) NSR 0 (11) 9(A) , No pain 8:08:13 78 13 96 0 157/86(100) NSR 0 (11) 9(A) , No pain 8:13:39 77 15 93 28.4 142/85(116) NSR 0 (11) 9(A) , No pain 8:18:21 74 15 97 23 131/84(111) NSR 0 (11) 9(A) , No pain 8:23:02 80 16 96 20.2 136/84(119) NSR 0 (11) 9(A) , No pain 8:28:27 86 15 97 27.7 140/82(117) NSR 0 (11) 9(A) , No pain 8:33:10 85 15 98 24 146/84(111) NSR 0 (11) 10(A) , No pain 8:37:53 84 16 99 22.5 147/88(121) NSR 0 (11) 10(A) , No pain Medications Time Medication Route Dose Verified Delivered Reason Notes Effec tiveness by by 7:41:34 Oxygen NC 2 Guillaume Esa used for l/min Vik Jonas RN procedure 7:41:41 Lidocaine 2% added 20ml Guillaume Guillaume for local to vial Vik Chery MD anesthetic field 7:41:49 Heparin Flush added 2 Guillaume Guillaume used for Bag to bags Vik Chery MD procedure (1000units/500ml field NS) 7:41:58 0.9% NaCl I.V. 100 Guillaume Esa Per ml/hr Vik Jonas RN physician 7:58:47 Versed I.V. 1 mg Guillaume Esa for Vik Jonas RN sedation 7:58:53 Fentanyl I.V. 50 Guillaume Esa for kristin Jonas RN sedation 8:03:58 Versed I.V. 1 mg Guillaume Esa for Vik Jonas RN sedation 8:04:02 Fentanyl I.V. 50 Guillaume Esa for kristin Jonas RN sedation 8:17:30 Fentanyl I.V. 50 Guillaume Esa for kristin Jonas RN sedation 8:27:00 Fentanyl I.V. 50 Guillaume Esa for kristin Jonas RN sedation Procedure Log Time Note 7:20:11 Informed consent obtained and on chart 7:20:14 Admit Source: Other 7:20:29 Diagnostic Cath status Elective 7:20:34 Time tracking: Regular hours 7:20:37 Plan of Care:Hemodynamics will remain stable., Cardiac rhythm will remain stable., Comfort level will be maintained., Respiratory function will remain adequate., Patient/ family verbilizes understanding of procedure., Procedure tolerated without complication., Recovers from procedure without complications.. 7:21:49 H&P Date Dictated: 01/10/2018 Within 30 days and on chart., H&P Addendum completed by physician on day of procedure. (MUST COMPLETE FOR ALL OUTPATIENTS). 7:30:51 Lab Result : Hemoglobin 15 g/dl 7:30:51 Lab Result : Hematocrit 45.2 % 7:30:51 Lab Result : BUN 31 mg/dl 7:30:51 Lab Result : Creatinine 2 mg/dl 7:32:11 Gabriel Montes RT(R) sent for patient. Start room use. 7:39:54 Patient received from Pre/Post Procedure Room to CCL 1 Alert and oriented. Tansferred to table in Supine position. 7:39:55 Warm blankets applied, and romulo hugger turned on for patient comfort. 7:39:56 Correct patient and procedure confirmed by team. 7:39:58 ECG and BP/O2 sat monitors applied to patient. 7:41:34 Oxygen 2 l/min NC was administered by Esa Jonas RN; used for procedure; 7:41:41 Lidocaine 2% 20ml vial added to field was administered by Guillaume Chery MD; for local anesthetic; 7:41:49 Heparin Flush Bag (1000units/500ml NS) 2 bags added to field was administered by Guillaume Chery MD; used for procedure; 7:41:58 0.9% NaCl 100 ml/hr I.V. was administered by Esa Jonas RN; Per physician; 7:44:25 Pre-procedure instructions explained to patient. 7:44:25 Pre-op teaching completed and patient verbalized understanding. 7:44:27 Family unavailable. 7:44:30 Patient NPO since Midnight. 7:44:49 Patient allergic to Other allergyHydrocodone, Oxycodone, Flaygl 7:44:52 Is the patient allergic to Iodine/contrast media? No. 7:44:54 Is patient on blood thinner?No 7:44:55 Patient diabetic? No. 7:44:58 Previous problem with sedation/anesthesia? No ? 7:44:59 Snore? Yes 7:45:00 Sleep apnea? No 7:45:02 Deviated septum? No 7:45:02 Opens mouth fully? Yes 7:45:03 Sticks out tongue? Yes 7:45:33 Airway obstruction? 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 No ? 7:46:28 Pre procedure: right dorsailis pedis pulse 2+ Normal; easily identifiable; not easily obliterated 7:46:34 Patient pain scale 0/10 ?. 7:46:46 IV patent on arrival in left antecubital with 0.9% NaCl at O. 7:46:50 Lab results completed and on chart. 7:46:53 Right groin area was prepped with chlora-prep and draped in sterile fashion 7:46:54 Alarms reviewed by R. N. 7:46:54 Sharps counted by scrub and verified by R.N. 7:46:57 Use device set Femoral Dx 7:46:58 ACIST Syringe (89840) opened to sterile field. 7:46:59 Bag Decanter (2002S) opened to sterile field. 7:46:59 Medline Cath Pack ([id number]) opened to sterile field. 7:47:00 ACIST Hand Control (48322) opened to sterile field. 7:47:01 ACIST Manifold (35791) opened to sterile field. 7:47:01 DIAGNOSTIC Multipack 5Fr catheter set ([id number]) opened to sterile field. 7:47:02 Tegaderm 4 x 4 (1626W) opened to sterile field. 7:47:06 PERCUTANEOUS ENTRY 19GA needle opened to sterile field. 7:47:07 SHEATH 5FR [place] (HOX855) opened to sterile field. 7:47:07 DIAGNOSTIC WIRE .035 260cm J wire (096301) opened to sterile field. 7:47:15 Vital chart was started 7:54:32 Baseline sample Acquired. 7:54:35 Rhythm: sinus rhythm 7:54:38 Full Disclosure recording started 7:54:41 Physician arrived 7:54:42 --------ALL STOP TIME OUT------ 7:54:42 Final Timeout: patient, procedure, and site verified with staff and physician. All members of the team are in agreement. 7:54:50 Right groin site verified by team. 7:54:53 Physical assessment completed. ASA score P 3 - A patient with severe systemic disease as per Guillaume Chery MD. 7:54:59 Sedation plan: IV Moderate Sedation Medication:Versed, Fentanyl 7:58:47 Versed 1 mg I.V. was administered by Esa Jonas RN; for sedation; 7:58:53 Fentanyl 50 mcg I.V. was administered by Esa Jonas RN; for sedation; 7:59:17 Zero performed for pressure channel P1 8:03:51 Procedure started. 8:03:53 Local anesthetic to right femoral artery with Lidocaine 2% by Guillaume Chery MD.INITIAL ACCESS ONLY 8:03:58 Versed 1 mg I.V. was administered by Esa Jonas RN; for sedation; 8:04:02 Fentanyl 50 mcg I.V. was administered by Esa Jonas RN; for sedation; 8:07:00 WHOLEY 300cm 0.035 wire ([id number]) opened to sterile field. 8:07:11 wholey wire advanced for access. 8:07:47 Wire removed. 8:17:30 Fentanyl 50 mcg I.V. was administered by Esa Jonas RN; for sedation; 8:18:31 unable to gain access throught the right femoral artery. Moving to left. 8:18:40 Left groin area was prepped with chlora-prep and draped in sterile fashion 8:21:08 A 5 Fr sheath was inserted into the Right Femoral artery 8:21:58 A MULTIPACK JL 4.0 5Fr catheter was advanced over the wire and used for Procedure. 8:22:48 LCA angiography performed. 8:24:37 Catheter exchanged over wire. 8:24:41 A MULTIPACK 3DRC 5Fr catheter was advanced over the wire and used for Procedure. 8:25:22 RCA angiography performed. 8:25:49 Catheter exchanged over wire. 8:25:53 A MULTIPACK Pigtail 5 Fr catheter was advanced over the wire and used for Procedure. 8:27:00 Fentanyl 50 mcg I.V. was administered by Esa Jonas RN; for sedation; 8:27:14 LV gram done using MAGAÑA 8:27:16 Injector settings: Ml/sec: 10, Volume: 20, 8:27:29 LV hemodynamics recorded. 8:27:39 EF : 50 % 8:28:49 Abdominal Aortagram was performed. 8:28:55 Left leg runoff performed. 8:33:58 Catheter removed. 8:34:00 EXOSEAL 5Fr (EX500) opened to sterile field. 8:34:07 Sheath removed intact; hemostasis achieved with Exoseal to the Right Femoral artery. 8:34:08 Procedure ended.(Physican Out) 8:35:15 Fluoroscopy time 05.40 minutes. 8:35:26 Flurop Dose total: 604 8:35:26 Fluoroscopy dose: 604 mGy 8:35:28 Contrast amount:Isovue 300 69ml. 8:35:29 Sharps counted by scrub and verified by R.N. 8:36:37 Insertion/operative site no bleeding no hematoma. 8:36:40 Post-op/insertion site Right Femoral artery dressed using a 4 x 4 and Tegaderm. 8:36:43 Post right femoral artery:stable, soft, clean and dry 8:36:45 Post Procedure Pulses reassessed and unchanged 8:36:52 Post-procedure physical assessment completed. ASA score P 3 - A patient with severe systemic disease as per Guillaume Chery MD. 8:36:54 Post procedure rhythm: unchanged. 8:37:06 Estimated blood loss: 5 ml 8:37:08 Post procedure instruction explained to patient.Patient verbalizes understanding. 8:37:09 Patient needs reinforcement of post procedure teaching. 8:37:24 Procedure type changed to Cath procedure, Diagnostic procedure, LHC, LHC w/Coronaries, Sedation Charges, Moderate Sedation up to 30 minutes 8:37:39 Procedure and supply charges have been captured, reviewed, submitted and are correct. 8:37:41 Procedure Complication : No complications 8:37:42 Vital chart was stopped 8:37:44 See physician's report for complete and final results. 8:37:46 Report given to Pre/Post Procedure Room. 8:37:49 Patient transfered to Pre/Post Procedure Room with Stretcher. 8:37:51 Procedure ended. 8:37:51 Full Disclosure recording stopped 8:37:54 End room use (Document Last) Device Usage Item Name Manufacture Quantity Catalog Hospital Part Current Minimal Lot# / Number Charge Number Stock Stock Serial# Code ACIST Acist 1 36521 396309 302311 [id number] 20 Syringe Medical (66329) Systems Inc Bag Decanter Microtek 1 2001S 544978 12071 981114 5 (2001S) Medical Inc. Medline Cath Cardinal 1 [id number] 320335 20526 011611 5 Pack Health ([id number]) ACIST Hand Acist 1 77323 108009 994452 142080 5 Control Medical (20131) Systems Inc ACIST Acist 1 74678 734990 569172 403899 5 Manifold Medical (85416) Systems Inc DIAGNOSTIC Cardinal 1 [id number] 730450 01430 599384 30 Multipack Health 5Fr catheter set ([id number]) Tegaderm 4 x 3M 1 1626W 107260 169941 931813 5 4 (1626W) PERCUTANEOUS Cook [facility] 1 [id number] 545228 043820 5 ENTRY 19GA needle SHEATH 5FR Terumo 1 LOR910 963462 596379 628197 40 [place] (HZT084) DIAGNOSTIC [facility] 1 237543 626485 934986 408193 30 WIRE .035 260cm J wire (123646) WHOLEY 300cm Medtronic 1 [id number] 946937 745945 928950 3 0.035 wire ([id number]) MULTIPACK JL Cardinal 1 014683 5 4.0 5Fr Health catheter MULTIPACK Cardinal 1 403684 5 3DRC 5Fr Health catheter MULTIPACK Cardinal 1 180035 5 Pigtail 5 Fr Health catheter EXOSEAL 5Fr Cardinal 1 EX500 597485 402397 589999 10 (EX500) Health Signature Audit Accident Stage Time Signature Unsigned Intra-Procedure 01/17/2018 Gabriel Montes 8:38:20 AM RT(R) Signatures Monitor : Gabriel Montes RT Signature : Date : Time : [facility] [address] [place] [address]
[~2018-01-17 05:55] MED LIST: AGGRENOX 200/251 CAP PO; CELEBREX50 MG PO; DYAZIDE 37.5/251 CAP PO; LOSARTAN POTASS25 MG PO; MULTIPLE VITAMI1 TA1 PO; NIASPAN500 MG PO; PLAVIX75 MG PO; PRAVACHOL20 MG PO; TRICOR145 MG PO
[2018-01-17 06:29] VITALS: BP 187/80; Ht 177.8 cm; Wt 88.6 kg
[2018-01-17 06:44] LABS: BASOPHILS 0.5 % (0-2); EOSINOPHILS 3.2 % (0-7); HEMATOCRIT 45.2 % (42.0-54.0); IMMATURE GRANULOCYTES 0.7 % (0-5); LYMPHOCYTES 26.3 % (15-50); MCH 29.1 pg (26.0-34.0); MCHC 33.2 g/dL (31.0-37.0); MCV 87.6 fL (80.0-100.0); MONOCYTES 10.4 % (2-11); NEUTROPHILS 58.9 % (40-80); PLATELET COUNT 175 10x3/uL (130-400); RBC 5.16 10x6/uL (4.20-6.10); RDW 14.7 % (11.5-14.5); WBC 5.6 10x3/uL (4.8-10.8)
[2018-01-17 06:46] LABS: ANION GAP 13.2 mmol/L (8-16); CALCIUM 9.4 mg/dL (8.5-10.1); CARBON DIOXIDE 24.8 mmol/L (21.0-32.0)
== END 2018-01-17 11:30 | disposition home or self-care (01) ==
LOC: D.CATH 05:55
PROVIDERS: Internal Medicine Cardiovascular Disease
DX: I25.119 Atherosclerotic heart disease of native coronary artery with unspecified angina pectoris (principal); T82.855A Stenosis of coronary artery stent, initial encounter; R94.4 Abnormal results of kidney function studies; Z01.812 Encounter for preprocedural laboratory examination

== ENCOUNTER → 2018-02-07 12:55 | Outpatient (CLI) | payer MEDICARE, OTHER ==
[2018-01-17 06:29] VITALS: BMI 28.0
[~2018-02-07 12:55] MED LIST changes: +XARELTO15 MG PO; +XARELTO20 MG PO
== END | disposition home or self-care (01) ==
LOC: D.US 12:55
DX: R60.0 Localized edema (principal)

== ENCOUNTER 2018-02-07 13:42 | Inpatient (IN) | payer MEDICARE, OTHER ==
[2018-01-17 06:29] VITALS: Wt 88.3 kg
--- NOTE | ~2018-02-07 | HEMODYNAMI ---
PATIENT:NISREEN GAR MEDICAL RECORD: [id number] : 43 LOCATION:[facility] D.2103 ADMISSION DATE: 02/08/18 Generatedon:02/11/20188:35 Patient name: NISREEN GAR Patient #: [id number] SSN: : 1945 Date of study: 02/11/2018 Page: Of Hemodynamic Procedure Report Patient Data Patient Demographics Procedure consent was obtained First Name: NISREEN Gender: Male Last Name: RIN : 1945 [facility] Initial: R Age: 73 year(s) Patient #: [id number] Race: Unknown Additional ID: [id number] Contact details Address: [address] [place] [address] State: [place] City: [facility] Zip code: [address] Past Medical History Allergies Allergen Reaction Date Comments Reported Other allergy 08/11/2017 Metronidazole, oxycodone, Hydrocodone Other allergy 01/17/2018 Hydrocodone, Oxycodone, Flaygl Admission Admission Data Admission Date: 02/08/2018 Admission Time: 16:24 Room #: D.2103 Procedure Procedure Types Cath Procedure Diagnostic Procedure Sedation Charges Moderate Sedation up to 15 minutes PCI Procedure PTCA PTCA Initial x2 Procedure Description Procedure Date Procedure Date: 02/11/2018 Procedure Start Time: 8:02 Procedure End Time: 8:35 Procedure Staff Name Function Guillaume Prakash MD Performing Physician Torrie Ruiz RT Monitor Zeke Castellanos RN Nurse Gabriel Montes RT Scrub Procedure Data Cath Procedure Fluoroscopy Diagnostic fluoroscopy Total fluoroscopy Time: 8.2 time: 8.2 min min Diagnostic fluoroscopy Total fluoroscopy dose: 981 dose: 981 mGy mGy Contrast Material Contrast Material Type Amount (ml) Isovue 300 96 Entry Location Entry Primary Successful Side Size Upsize Upsize Entry Closure Succes sful Closure Location (Fr) 1 (Fr) 2 (Fr) Remarks Device Remarks Femoral Right 6 Fr Exoseal artery Short Estimated blood loss: 10 ml Procedure Complications No complications Procedure Medications Medication Administration Route Dosage Oxygen NC 2 l/min Lidocaine 2% added to field 20 0.9% NaCl I.V. 100 ml/hr Versed I.V. 1 mg Fentanyl I.V. 50 mcg Versed I.V. 1 mg Fentanyl I.V. 50 mcg Heparin Bolus I.V. 8500 units Plavix P.O. 600 mg Hemodynamics Rest Heart Rate: 80 (bpm) Snapshots Pre Cath Intra NCS Post Cath Vital Signs Time Heart Resp SPO2 etCO2 NIBP (mmHg) Rhythm Pain Sedation Rate (ipm) (%) (mmHg) Status Level (bpm) 7:50:31 70 18 97 0 176/103(133) NSR 0 (11) 10(A) , No pain 7:55:55 82 24 98 7.5 169/100(145) NSR 0 (11) 10(A) , No pain 8:00:43 86 22 98 25.5 169/83(129) NSR 0 (11) 10(A) , No pain 8:05:30 84 13 95 0 159/92(136) NSR 0 (11) 9(A) , No pain 8:10:17 75 14 95 12 155/68(120) NSR 0 (11) 9(A) , No pain 8:15:04 74 12 96 29.2 160/95(121) NSR 0 (11) 9(A) , No pain 8:20:23 90 13 95 33.8 158/96(118) NSR 0 (11) 9(A) , No pain 8:25:04 48 14 95 40.5 140/92(132) NSR 0 (11) 9(A) , No pain 8:29:44 93 17 95 35.87 154/93(116) NSR 0 (11) 10(A) , No pain 8:34:31 89 16 98 35.3 170/90(139) NSR 0 (11) 9(A) , No pain Medications Time Medication Route Dose Verified Delivered Reason Notes Eff ectiveness by by 8:00:10 Oxygen NC 2 Guillaume Buffie used for l/min Vik Castellanos RN procedure 8:00:18 Lidocaine added 20ml Guillaume Guillaume for local 2% to vial Vik Prakash MD anesthetic field 8:01:04 0.9% NaCl I.V. 100 Guillaume Buffie Per physician ml/hr Vik Castellanos RN 8:01:10 Versed I.V. 1 mg Guillaume Buffie for sedation Vik Castellanos RN 8:01:16 Fentanyl I.V. 50 Guillaume Buffie for sedation mcg Vik Castellanos RN 8:04:46 Versed I.V. 1 mg Guillaume Buffie for sedation Vik Castellanos RN 8:04:50 Fentanyl I.V. 50 Guillaume Buffie for sedation mcg Vik Castellanos RN 8:10:13 Heparin I.V. 8,500 Guillaume Buffie for verified Bolus units Vik Castellanos RN anticoagulation with dr prakash 8:34:25 Plavix P.O. 600 Guillaume Buffie for mg Vik Castellanos RN antiplatelet therapy Procedure Log Time Note 7:25:08 Time tracking: Regular hours 7:25:12 Plan of Care:Hemodynamics will remain stable., Cardiac rhythm will remain stable., Comfort level will be maintained., Respiratory function will remain adequate., Patient/ family verbilizes understanding of procedure., Procedure tolerated without complication., Recovers from procedure without complications.. 7:25:59 Torrie Counts RT(R) sent for patient. Start room use. 7:40:43 Patient received from PCU to CCL 1 Alert and oriented. Tansferred to table in Supine position. 7:40:43 Warm blankets applied, and romulo hugger turned on for patient comfort. 7:40:44 Correct patient and procedure confirmed by team. 7:40:45 Signed procedure consent form obtained from patient. 7:40:45 ECG and BP/O2 sat monitors applied to patient. 7:48:44 Vital chart was started 7:48:46 Rhythm: sinus rhythm 7:48:48 Full Disclosure recording started 7:48:55 H&P Date Dictated: 02/10/2018 Within 30 days and on chart.. 7:48:56 Pre-procedure instructions explained to patient. 7:48:57 Pre-op teaching completed and patient verbalized understanding. 7:48:58 Family unavailable. 7:49:00 Patient NPO since Midnight. 7:49:15 Is the patient allergic to Iodine/contrast media? No. 7:49:17 Is patient on blood thinner?Yes 7:49:22 ACC The patient was administered the following blood thiners within the last 24 hours: ACCLovenox 7:49:33 Patient diabetic? No. 7:49:37 Previous problem with sedation/anesthesia? No ? 7:49:39 Snore? Yes 7:49:40 Sleep apnea? No 7:49:42 Deviated septum? No 7:49:43 Opens mouth fully? Yes 7:49:44 Sticks out tongue? Yes 7:49:45 Airway obstruction? No ? 7:49:53 Dentures? Yes IN 7:49:57 Pre procedure: right dorsailis pedis pulse 2+ Normal; easily identifiable; not easily obliterated 7:49:59 Patient pain scale 0/10 ?. 7:50:05 IV patent on arrival in right hand with 0.9% NaCl at [facility]. 7:50:08 Lab results completed and on chart. 7:50:21 Right groin area was prepped with chlora-prep and draped in sterile fashion 7:50:22 Sharps counted by scrub and verified by R.N. 7:50:22 Alarms reviewed by R. N. 7:57:29 Final Timeout: patient, procedure, and site verified with staff and physician. All members of the team are in agreement. 7:57:30 Right groin site verified by team. 7:57:32 Physical assessment completed. ASA score P 2 - A patient with mild systemic disease as per Guillaume Prakash MD. 7:57:35 Sedation plan: IV Moderate Sedation Medication:Versed, Fentanyl 8:00:10 Oxygen 2 l/min NC was administered by Zeke Castellanos RN; used for procedure; 8:00:18 Lidocaine 2% 20ml vial added to field was administered by Guillaume Prakash MD; for local anesthetic; 8:01:04 0.9% NaCl 100 ml/hr I.V. was administered by Zeke Castellanos RN; Per physician; 8:01:10 Versed 1 mg I.V. was administered by Zeke Castellanos RN; for sedation; 8:01:16 Fentanyl 50 mcg I.V. was administered by Zeke Castellanos RN; for sedation; 8:01:18 Zero performed for pressure channel P1 8:01:54 Procedure started. 8:02:00 Local anesthetic to right femoral artery with Lidocaine 2% by Guillaume Prakash MD.INITIAL ACCESS ONLY 8:02:25 Baseline sample Acquired. 8:03:22 A 6 Fr Short sheath was inserted into the Right Femoral artery 8:03:36 GUIDE 6FR AR 1.0 catheter ([id number]) opened to sterile field. 8:03:36 GUIDE 6FR XBLAD 3.5 catheter ([id number]) opened to sterile field. 8:03:43 Use device set CATH PACK 8:03:44 ACIST Syringe (64130) opened to sterile field. 8:03:44 ACIST Hand Control (47151) opened to sterile field. 8:03:45 ACIST Manifold (61302) opened to sterile field. 8:03:45 Medline Cath Pack ([id number]) opened to sterile field. 8:03:46 Bag Decanter (2002S) opened to sterile field. 8:03:46 DIAGNOSTIC WIRE .035 260cm J wire (087785) opened to sterile field. 8:03:52 PERCUTANEOUS ENTRY 19GA needle opened to sterile field. 8:03:55 Use device set PRAKASH PCI 8:03:59 TUBING High Pressure Extension Tubing (Vik) ([id number]) opened to sterile field. 8:04:00 INFLATOR Merit BasixCompak (GT3435) opened to sterile field. 8:04:08 BMW 300cm Ashton 2 J wire ([id number]) opened to sterile field. 8:04:46 Versed 1 mg I.V. was administered by Zeke Castellanos RN; for sedation; 8:04:50 Fentanyl 50 mcg I.V. was administered by Zeke Castellanos RN; for sedation; 8:07:15 6 Fr XBLAD 3.5 guide catheter was inserted over the wire 8:07:53 LCA angiography performed. 8:08:44 BMW wire advanced. 8:10:13 Heparin Bolus 8,500 units I.V. was administered by Zeke Castellanos RN; for anticoagulation; verified with dr prakash 8:12:15 Inflate balloon Inflation number: 1 A MAVERICK 2.5 X 20 balloon ( [id number]) was prepped and advanced across the Mid LAD, then inflated to 10 JEANINE for 0:12 (min:sec). 8:12:40 Inflation number: 2 The MAVERICK 2.5 X 20 balloon ( [id number]) was reinflated across the Mid LAD, to 10 JEANINE for 0:16 (min:sec). 8:13:23 Inflation number: 3 The MAVERICK 2.5 X 20 balloon ( [id number]) was reinflated across the Mid LAD, to 14 JEANINE for 0:35 (min:sec). 8:13:59 Inflation number: 4 The MAVERICK 2.5 X 20 balloon ( [id number]) was reinflated across the Mid LAD, to 14 JEANINE for 0:22 (min:sec). 8:15:27 Inflation number: 5 The MAVERICK 2.5 X 20 balloon ( [id number]) was reinflated across the Mid LAD, to 14 JEANINE for 0:18 (min:sec). 8:18:48 Balloon removed over the wire. 8:18:48 Wire removed. 8:18:48 Guide catheter removed. 8:18:59 9 Fr ? guide catheter was inserted over the wire 8:19:17 Procedure type changed to Cath procedure, Diagnostic procedure, Sedation Charges, Moderate Sedation up to 15 minutes, PCI procedure, PTCA, PTCA Initial x2 8:19:26 6 Fr AR 1.0 guide catheter was inserted over the wire 8:21:07 BMW wire advanced. 8:24:56 Inflation number: 1 The MAVERICK 3.0 X 30 balloon ([id number]) was reinflated across the Mid RCA, to 13 JEANINE for 0:28 (min:sec). 8:26:02 Inflation number: 3 The MAVERICK 3.0 X 30 balloon ([id number]) was reinflated across the Mid RCA, to 14 JEANINE for 0:23 (min:sec). 8:27:17 Balloon removed over the wire. 8:27:21 Wire removed. 8:27:22 Guide catheter removed. 8:27:55 EXOSEAL 6Fr (EX600) opened to sterile field. 8:28:09 Sheath removed intact; hemostasis achieved with Exoseal to the Right Femoral artery. 8:28:11 Procedure ended.(Physican Out) 8:28:41 Fluoroscopy time 08.20 minutes. 8:28:45 Flurop Dose total: 981 8:28:45 Fluoroscopy dose: 981 mGy 8:28:53 Contrast amount:Isovue 300 96ml. 8:28:55 Sharps counted by scrub and verified by R.N. 8:28:57 Insertion/operative site no bleeding no hematoma. 8:28:59 Post-op/insertion site Right Femoral artery dressed using a 4 x 4 and Tegaderm. 8:29:02 Post right femoral artery:stable, clean and dry 8:29:04 Post Procedure Pulses reassessed and unchanged 8:29:07 Post-procedure physical assessment completed. ASA score P 2 - A patient with mild systemic disease as per Guillaume Prakash MD. 8:30:00 Post procedure rhythm: unchanged. 8:30:02 Estimated blood loss: 10 ml 8:30:04 Post procedure instruction explained to patient.Patient verbalizes understanding. 8:30:05 Patient needs reinforcement of post procedure teaching. 8:30:14 Procedure Complication : No complications 8:30:16 See physician's report for complete and final results. 8:30:36 Tegaderm 4 x 4 (1626W) opened to sterile field. 8:31:26 SHEATH 6Fr Prelude ([id number]) opened to sterile field. 8:32:01 IV Extension Set opened to sterile field. 8:33:18 Procedure and supply charges have been captured, reviewed, submitted and are correct. 8:34:25 Plavix 600 mg P.O. was administered by Zeke Castellanos RN; for antiplatelet therapy; 8:35:01 Vital chart was stopped 8:35:03 Report given to PCU. 8:35:06 Patient transfered to PCU with Bed. 8:35:14 Procedure ended. 8:35:14 Full Disclosure recording stopped 8:35:17 End room use (Document Last) Intervention Summary Intervention Notes Time ActionType Lesion and Equipment Action# Pressure Duration Attributes Used 8:12:15 Inflate Mid LAD MAVERICK 2.5 1 10 00:12 balloon X 20 balloon ( [id number]) 8:12:40 Reinflate Mid LAD MAVERICK 2.5 2 10 00:16 balloon X 20 balloon ( [id number]) 8:13:23 Reinflate Mid LAD MAVERICK 2.5 3 14 00:35 balloon X 20 balloon ( [id number]) 8:13:59 Reinflate Mid LAD MAVERICK 2.5 4 14 00:22 balloon X 20 balloon ( [id number]) 8:15:27 Reinflate Mid LAD MAVERICK 2.5 5 14 00:18 balloon X 20 balloon ( [id number]) 8:24:56 Reinflate Mid RCA MAVERICK 3.0 1 13 00:28 balloon X 30 balloon ([id number]) 8:26:02 Reinflate Mid RCA MAVERICK 3.0 3 14 00:23 balloon X 30 balloon ([id number]) Device Usage Item Name Manufacture Quantity Catalog Number Hospital Part Current Min imal Lot# / Charge Number Stock Stock Serial# Code GUIDE 6FR AR Medtronic 1 [id number] [id number] [id number] 1 1.0 catheter ([id number]) GUIDE 6FR Cardinal 1 [id number] 310216 899646 753940 10 XBLAD 3.5 Health catheter (52436096) ACIST Acist 1 89927 723824 639418 216873 20 Syringe Medical (01237) Systems Inc ACIST Hand Acist 1 04405 391322 569541 575242 5 Control Medical (92504) Systems Inc ACIST Acist 1 32856 947003 487780 455136 5 Manifold Medical (42059) Systems Inc Medline Cath Cardinal 1 [id number] 761592 49608 826771 5 Pack Health ([id number]) Bag Decanter Microtek 1 2001S 542036 00041 708710 5 (2001S) Medical Inc. DIAGNOSTIC St Charlie 1 651168 728924 629464 356382 30 WIRE .035 260cm J wire (723583) PERCUTANEOUS Cook Medical 1 O43600 074772 160367 5 ENTRY 19GA needle TUBING High Merit 1 [id number] 677482 19391 754326 10 Pressure Medical Extension Tubing (Prakash) (DL4864X) INFLATOR Merit 1 PF1973 058439 330633 642173 15 [facility] Medical BasixCompak (XT2360) BMW 300cm Read 1 [id number] 905191 377344 540993 5 Ashton 2 Vascular J wire (7311847X) MAVERICK 2.5 Ketchum 1 [id number] 026030 963899 591978 1 25792024 X 20 balloon Scientific ( [id number]) MAVERICK 3.0 Ketchum 1 [id number] 711083 187201 840634 1 93694538 X 30 balloon Scientific ([id number]) EXOSEAL 6Fr Cardinal 1 EX600 847221 706097 498262 10 (EX600) Health Tegaderm 4 x 3M 1 1626W 588536 197386 341893 5 4 (1626W) SHEATH 6Fr Merit 1 [id number] 711664 563750 435952 5 Prelude Medical ([id number]) IV Extension Hospira 1 220813 57353 462643 5 Set Signature Audit Scalf Stage Time Signature Unsigned Intra-Procedure 02/11/2018 Torrie 8:35:27 AM Counts RT(R) Signatures Monitor : Torrie Signature : Counts RT Date : Time : [id number] [place] [address]
[~2018-02-07 13:42] MED LIST changes: -XARELTO15 MG PO; -XARELTO20 MG PO
[2018-02-07 14:52] LABS: BASOPHILS 0.8 % (0-2); EOSINOPHILS 2.1 % (0-7); HEMATOCRIT 43.8 % (42.0-54.0); HEMOGLOBIN 14.7 g/dL (13.5-17.5); IMMATURE GRANULOCYTES 0.5 % (0-5); LYMPHOCYTES 26.2 % (15-50); MCH 29.3 pg (26.0-34.0); MCHC 33.6 g/dL (31.0-37.0); MCV 87.4 fL (80.0-100.0); MEAN PLATELET VOLUME 9.9 fL (7.4-10.4); MONOCYTES 8.7 % (2-11); NEUTROPHILS 61.7 % (40-80); PLATELET COUNT 142 10x3/uL (130-400); RBC 5.01 10x6/uL (4.20-6.10); RDW 14.3 % (11.5-14.5); WBC 6.1 10x3/uL (4.8-10.8)
[2018-02-07 15:02] LABS: D-DIMER-QUANTITATIVE 1.7 ug/mLFEU (0.20-0.54)
[2018-02-07 15:09] LABS: APTT 27.3 SECONDS (22.8-39.4); INR 1.02 (0.85-1.17)
[2018-02-07 16:28] LABS: ANION GAP 16.2 mmol/L (8-16); BILIRUBIN - TOTAL 0.4 mg/dL (0.2-1.3); CALCIUM 9.4 mg/dL (8.5-10.1); CARBON DIOXIDE 22.3 mmol/L (21.0-32.0); CREATININE - SERUM 2.1 mg/dL (0.6-1.3); POTASSIUM - SERUM 4.5 mmol/L (3.5-5.1); PROTEIN - SERUM 7.2 g/dL (6.4-8.2)
[2018-02-08 04:00] VITALS: BP 160/69
[2018-02-08 09:56] VITALS: BP 153/79
[2018-02-08 12:23] VITALS: BP 173/88
[2018-02-08 16:59] VITALS: BP 152/76
[2018-02-08 18:59] LABS: APPEARANCE CLEAR (CLEAR); BILIRUBIN NEGATIVE (NEGATIVE); COLOR YELLOW (YELLOW); GLUCOSE NEGATIVE (NEGATIVE); KETONE NEGATIVE (NEGATIVE); NITRITE NEGATIVE (NEGATIVE); PROTEIN NEGATIVE (NEGATIVE); UROBILINOGEN NORMAL (NORMAL)
[2018-02-08 19:08] LABS: CREATININE - URINE 104.5 mg/dL (30-125); PROTEIN - URINE 20.6 mg/dL (0.0-11.9)
[2018-02-08 20:33] VITALS: BP 166/72
[2018-02-09 00:41] VITALS: BP 134/68
[2018-02-09 05:40] LABS: BASOPHILS 0.6 % (0-2); EOSINOPHILS 3.6 % (0-7); HEMATOCRIT 44.7 % (42.0-54.0); HEMOGLOBIN 14.8 g/dL (13.5-17.5); IMMATURE GRANULOCYTES 0.6 % (0-5); LYMPHOCYTES 33.3 % (15-50); MCH 28.8 pg (26.0-34.0); MCHC 33.1 g/dL (31.0-37.0); MEAN PLATELET VOLUME 10.1 fL (7.4-10.4); MONOCYTES 11.3 % (2-11); NEUTROPHILS 50.6 % (40-80); PLATELET COUNT 147 10x3/uL (130-400); RBC 5.14 10x6/uL (4.20-6.10); RDW 14.5 % (11.5-14.5); WBC 5.2 10x3/uL (4.8-10.8)
[2018-02-09 05:50] VITALS: BP 160/76
[2018-02-09 06:12] LABS: ALBUMIN 3.6 g/dL (3.4-5.0); ANION GAP 15.1 mmol/L (8-16); BILIRUBIN - TOTAL 0.4 mg/dL (0.2-1.3); CALCIUM 8.8 mg/dL (8.5-10.1); CARBON DIOXIDE 24.1 mmol/L (21.0-32.0); CREATININE - SERUM 1.9 mg/dL (0.6-1.3); POTASSIUM - SERUM 4.2 mmol/L (3.5-5.1); PROTEIN - SERUM 6.3 g/dL (6.4-8.2); URIC ACID 5.9 mg/dL (2.6-7.2)
[2018-02-09 06:55] LABS: ERYTHROCYTE SEDIMENTATION RATE 1 mm/hr (0-20)
[2018-02-09 08:13] VITALS: BP 153/87
[2018-02-09 11:25] VITALS: BP 152/77
[2018-02-09 15:44] VITALS: BP 141/78
[2018-02-09 20:30] VITALS: BP 161/86
[2018-02-10 00:30] VITALS: BP 153/84
[2018-02-10 04:30] VITALS: BP 144/60
[2018-02-10 04:57] LABS: BASOPHILS 0.6 % (0-2); EOSINOPHILS 3.5 % (0-7); HEMOGLOBIN 15.3 g/dL (13.5-17.5); IMMATURE GRANULOCYTES 0.8 % (0-5); LYMPHOCYTES 32.4 % (15-50); MCH 29.1 pg (26.0-34.0); MCHC 32.6 g/dL (31.0-37.0); MEAN PLATELET VOLUME 10.1 fL (7.4-10.4); NEUTROPHILS 54.7 % (40-80); PLATELET COUNT 121 10x3/uL (130-400); RBC 5.25 10x6/uL (4.20-6.10); RDW 14.4 % (11.5-14.5); WBC 5.2 10x3/uL (4.8-10.8)
[2018-02-10 05:00] LABS: MCV 89.5 fL (80.0-100.0)
[2018-02-10 05:19] LABS: ALBUMIN 3.2 g/dL (3.4-5.0); ANION GAP 18.3 mmol/L (8-16); BILIRUBIN - TOTAL 0.52 mg/dL (0.2-1.3); CALCIUM 8.2 mg/dL (8.5-10.1); CARBON DIOXIDE 18.3 mmol/L (21.0-32.0); CREATININE - SERUM 1.6 mg/dL (0.6-1.3); POTASSIUM - SERUM 4.6 mmol/L (3.5-5.1); PROTEIN - SERUM 6.6 g/dL (6.4-8.2)
[2018-02-10 08:29] VITALS: BP 169/65
[2018-02-10 11:31] VITALS: BP 156/75
[2018-02-10 15:47] VITALS: BP 155/77
[2018-02-10 20:30] VITALS: BP 152/65
[2018-02-11 00:30] VITALS: BP 168/85
[2018-02-11 04:30] VITALS: BP 172/86
[2018-02-11 05:06] LABS: BASOPHILS 0.5 % (0-2); EOSINOPHILS 3.1 % (0-7); HEMATOCRIT 41.6 % (42.0-54.0); HEMOGLOBIN 13.7 g/dL (13.5-17.5); IMMATURE GRANULOCYTES 0.7 % (0-5); LYMPHOCYTES 29.5 % (15-50); MCHC 32.9 g/dL (31.0-37.0); MCV 88.1 fL (80.0-100.0); MEAN PLATELET VOLUME 10.2 fL (7.4-10.4); MONOCYTES 9.7 % (2-11); NEUTROPHILS 56.5 % (40-80); PLATELET COUNT 135 10x3/uL (130-400); RBC 4.72 10x6/uL (4.20-6.10); RDW 14.4 % (11.5-14.5); WBC 5.8 10x3/uL (4.8-10.8)
[2018-02-11 05:25] LABS: ALBUMIN 3.1 g/dL (3.4-5.0); BILIRUBIN - TOTAL 0.44 mg/dL (0.2-1.3); CALCIUM 7.9 mg/dL (8.5-10.1); CREATININE - SERUM 1.6 mg/dL (0.6-1.3)
[2018-02-11 05:38] LABS: ANION GAP 13.3 mmol/L (8-16); CARBON DIOXIDE 23.7 mmol/L (21.0-32.0)
[2018-02-11 08:21] VITALS: BP 108/51
[2018-02-11 12:15] VITALS: BP 159/95
[2018-02-11 17:24] VITALS: BP 161/55
[2018-02-11 20:00] VITALS: BP 154/74
[2018-02-12 05:58] LABS: BASOPHILS 0.6 % (0-2); EOSINOPHILS 2.9 % (0-7); HEMATOCRIT 42.2 % (42.0-54.0); HEMOGLOBIN 13.7 g/dL (13.5-17.5); IMMATURE GRANULOCYTES 0.3 % (0-5); LYMPHOCYTES 22.5 % (15-50); MCH 28.8 pg (26.0-34.0); MCHC 32.5 g/dL (31.0-37.0); MCV 88.8 fL (80.0-100.0); MONOCYTES 9.2 % (2-11); NEUTROPHILS 64.5 % (40-80); PLATELET COUNT 122 10x3/uL (130-400); RBC 4.75 10x6/uL (4.20-6.10); RDW 14.4 % (11.5-14.5); WBC 6.3 10x3/uL (4.8-10.8)
[2018-02-12 06:22] LABS: ALBUMIN 3.3 g/dL (3.4-5.0); ANION GAP 13.9 mmol/L (8-16); BILIRUBIN - TOTAL 0.7 mg/dL (0.2-1.3); CALCIUM 8.5 mg/dL (8.5-10.1); CARBON DIOXIDE 23.1 mmol/L (21.0-32.0); CREATININE - SERUM 1.7 mg/dL (0.6-1.3); PROTEIN - SERUM 6.3 g/dL (6.4-8.2)
[2018-02-12 06:46] VITALS: BP 139/91
[2018-02-12 08:51] VITALS: BP 165/84
[2018-02-12] MEDS ORDERED: PLAVIX75 MG PO (09:46)
[2018-02-12] MEDS ORDERED: XARELTO15 MG PO (09:48)
[2018-02-12] MEDS ORDERED: XARELTO20 MG PO (09:56)
== END 2018-02-12 12:45 | disposition home or self-care (01) | DRG 251 ==
LOC: D.ER 13:42 → D.M2 21:07 → D.EDHOLD 21:07 → OBSVTIME 21:07 → D.M2 21:33
PROVIDERS: Emergency Medicine; Family Medicine; Internal Medicine Cardiovascular Disease; Internal Medicine Nephrology
PROC: 4A023N7 Measurement of Cardiac Sampling and Pressure, Left Heart, Percutaneous Approach (ICD-10-PCS; 2018-02-11)
PROC: 02713ZZ Dilation of Coronary Artery, Two Arteries, Percutaneous Approach (ICD-10-PCS; principal; 2018-02-11 08:00)
DX: I82.412 Acute embolism and thrombosis of left femoral vein (principal); T82.855A Stenosis of coronary artery stent, initial encounter; N17.9 Acute kidney failure, unspecified; I82.432 Acute embolism and thrombosis of left popliteal vein; Y83.8 Other surgical procedures as the cause of abnormal reaction of the patient, or of later complication, without mention of misadventure at the time of the procedure; I25.10 Atherosclerotic heart disease of native coronary artery without angina pectoris; I48.2 Chronic atrial fibrillation; Z79.01 Long term (current) use of anticoagulants; I12.9 Hypertensive chronic kidney disease with stage 1 through stage 4 chronic kidney disease, or unspecified chronic kidney disease; N18.9 Chronic kidney disease, unspecified; H35.30 Unspecified macular degeneration; E78.5 Hyperlipidemia, unspecified; M06.9 Rheumatoid arthritis, unspecified; Z86.73 Personal history of transient ischemic attack (TIA), and cerebral infarction without residual deficits

== ENCOUNTER → 2018-04-30 12:40 | Outpatient (CLI) | payer MEDICARE, OTHER ==
[2018-01-17 06:29] VITALS: BMI 28.0
[~2018-04-30 12:40] MED LIST changes: +XARELTO15 MG PO; +XARELTO20 MG PO
== END | disposition home or self-care (01) ==
LOC: D.US 12:40
DX: I82.402 Acute embolism and thrombosis of unspecified deep veins of left lower extremity (principal)

== ENCOUNTER → 2018-10-01 10:47 | Outpatient (CLI) | payer MEDICARE, OTHER ==
[2018-01-17 06:29] VITALS: BMI 28.0
== END | disposition home or self-care (01) ==
LOC: D.HCCARDIO 10:47
DX: I25.10 Atherosclerotic heart disease of native coronary artery without angina pectoris (principal)

== ENCOUNTER 2018-10-14 11:45 | Outpatient (CLI) | payer MEDICARE, OTHER ==
[~2018-10-14] VITALS: Ht 177.8 cm; Wt 90.9 kg
--- NOTE | ~2018-10-14 | HEMODYNAMI ---
PATIENT:NISREEN GAR MEDICAL RECORD: [id number] : 43 LOCATION:[facility] ADMISSION DATE: 10/14/18 Generatedon:10/14/201815:09 Patient name: NISREEN GAR Patient #: [id number] SSN: : 1945 Date of study: 10/14/2018 Page: Of Hemodynamic Procedure Report Patient Data Patient Demographics Procedure consent was obtained First Name: NISREEN Gender: Male Last Name: RIN : 1945 [facility] Initial: R Age: 73 year(s) Patient #: [id number] Race: Unknown Additional ID: [id number] Contact details [address]: [address] [place] [address] State: [place] City: [place] Zip code: [address] Past Medical History Allergies Allergen Reaction Date Comments Reported Other allergy 08/11/2017 Metronidazole, oxycodone, Hydrocodone Other allergy 01/17/2018 Hydrocodone, Oxycodone, Flaygl Admission Admission Data Admission Date: 10/14/2018 Admission Time: 11:45 Admit Source: Other Procedure Procedure Types Cath Procedure Diagnostic Procedure C [facility] w/Coronaries PCI Procedure Coronary Stent Coronary Stent Initial Procedure Description Procedure Date Procedure Date: 10/14/2018 Procedure Start Time: 14:35 Procedure End Time: 15:08 Procedure Staff Name Function Guillaume Chery MD Performing Physician José Miguel Lugo RT Monitor Alberto Martinez RT Scrub Rosalinda Silva RN Nurse Procedure Data Cath Procedure Fluoroscopy Diagnostic fluoroscopy Total fluoroscopy Time: 3.2 time: 3.2 min min Diagnostic fluoroscopy Total fluoroscopy dose: 764 dose: 764 mGy mGy Contrast Material Contrast Material Type Amount (ml) Isovue 300 97 Entry Location Entry Primary Successful Side Size Upsize Upsize Entry Closure Succes sful Closure Location (Fr) 1 (Fr) 2 (Fr) Remarks Device Remarks Femoral Right 5 Fr Exoseal vein Femoral Right 5 Fr 6 Fr Exoseal artery Short Diagnostic catheters Device Type Used For End Catheter Placement MULTIPACK JL 4.0 5Fr Procedure catheter MULTIPACK 3DRC 5Fr Right Coronary catheter Angiography MULTIPACK Pigtail 5 Fr LV Angiography catheter Procedure Complications No complications Procedure Medications Medication Administration Route Dosage 0.9% NaCl I.V. 100 ml/hr Oxygen etCO2 Nasal cannula 2 l/min Lidocaine 2% added to field 20 Heparin Flush Bag added to field 2 bags (1000units/500ml NS) Versed I.V. 2 mg Fentanyl I.V. 100 mcg Versed I.V. 2 mg Fentanyl I.V. 50 mcg Heparin Bolus I.V. 9100 units Plavix P.O. 600 mg Hemodynamics Rest Heart Rate: 76 (bpm) Pressure Samples Time Site Value (mmHg) Purpose Heart Use Rate(bpm) 14:46 LV 124/11,23 Snapshot 76 14:46 LV 129/12,28 EDP 61 14:47 AO 121/67(86) Pullback 71 Gradients Valve Time Site Site 2 Mean SEP/DFP Peak To Heart Use 1 (mmHg) (sec/min) Peak Rate (mmHg) (bpm) Aortic 14:47 LV AO 71 121/67(86) Snapshots Pre Cath Intra NCS Post Cath Vital Signs Time Heart Resp SPO2 etCO2 NIBP (mmHg) Rhythm Pain Sedation Rate (ipm) (%) (mmHg) Status Level (bpm) 14:20:10 84 20 98 34.8 149/85(116) NSR 0 (11) 10(A) , No pain 14:24:28 90 19 99 22.7 142/91(119) NSR 0 (11) 10(A) , No pain 14:29:27 89 21 95 23.7 136/81(106) NSR 0 (11) 10(A) , No pain 14:33:43 81 21 96 31 132/77(104) NSR 0 (11) 9(A) , No pain 14:37:59 84 21 97 17 142/77(122) NSR 0 (11) 10(A) , No pain 14:43:00 89 12 96 40.1 131/62(95) NSR 0 (11) 10(A) , No pain 14:49:09 99 21 95 31.3 101/65(82) NSR 0 (11) 10(A) , No pain 14:53:12 91 13 96 30 117/77(106) NSR 0 (11) 10(A) , No pain 14:57:20 91 27 96 37 122/77(103) NSR 0 (11) 10(A) , No pain 15:02:07 88 23 97 32 127/82(107) NSR 0 (11) 10(A) , No pain 15:06:21 87 16 98 15.1 139/78(101) NSR 0 (11) 10(A) , No pain Medications Time Medication Route Dose Verified Delivered Reason Notes Effectiveness by by 14:19:06 0.9% NaCl I.V. 100 Guillaume Rosalinda used for ml/hr Vik Silva fish cleaner 14:19:14 Oxygen etCO2 2 Guillaume Rosalinda used for Nasal l/min Vik Silva procedure cannula RN 14:19:20 Lidocaine 2% added 20ml Guillaume Guillaume for local to vial Vik Chery MD anesthetic field 14:19:24 Heparin Flush added 2 Guillaume Guillaume used for Bag to bags Vik Chery MD procedure (1000units/500ml field NS) 14:28:21 Versed I.V. 2 mg Guillaume Rosalinda for sedation Vik Silva RN 14:28:29 Fentanyl I.V. 100 Guillaume Rosalinda for sedation mcg Vik Silva RN 14:39:54 Versed I.V. 2 mg Guillaume Rosalinda for sedation Vik Silva RN 14:39:59 Fentanyl I.V. 50 Guillaume Rosalinda for sedation mcg Vik Silva RN 14:53:26 Heparin Bolus I.V. 9100 Guillaume Rosalinda for verif ied units Vik Silva anticoagulation with Dr. NANCY Chery 15:05:47 Plavix P.O. 600 Guillaume Rosalinda for mg Vik Silva antiplatelet RN therapy Procedure Log Time Note 14:02:08 Admit Source: Other 14:02:43 Diagnostic Cath status Elective 14:02:54 Alberto Martinez RT(R) sent for patient. Start room use. 14:03:13 Time tracking: Regular hours (M-F 7:00 - 5:00) 14:03:18 Plan of Care:Hemodynamics will remain stable., Cardiac rhythm will remain stable., Comfort level will be maintained., Respiratory function will remain adequate., Patient/ family verbilizes understanding of procedure., Procedure tolerated without complication., Recovers from procedure without complications.. 14:11:53 Patient received from Pre/Post Procedure Room to CCL 1 Alert and oriented. Tansferred to table in Supine position. 14:11:54 Warm blankets applied, and romulo hugger turned on for patient comfort. 14:11:54 Correct patient and procedure confirmed by team. 14:11:56 Signed procedure consent form obtained from patient. 14:11:57 ECG and BP/O2 sat monitors applied to patient. 14:11:58 Full Disclosure recording started 14:18:56 Vital chart was started 14:19:06 0.9% NaCl 100 ml/hr I.V. was administered by Rosalinda Silva RN; used for procedure; 14:19:06 Rhythm: sinus rhythm 14:19:14 Oxygen 2 l/min etCO2 Nasal cannula was administered by Rosalinda Silva RN; used for procedure; 14:19:20 Lidocaine 2% 20ml vial added to field was administered by Guillaume Chery MD; for local anesthetic; 14:19:24 Heparin Flush Bag (1000units/500ml NS) 2 bags added to field was administered by Guillaume Chery MD; used for procedure; 14:20:25 H&P Date Dictated: 10/14/2018 Within 30 days and on chart., H&P Addendum completed by physician on day of procedure. (MUST COMPLETE FOR ALL OUTPATIENTS). 14:20:26 Pre-procedure instructions explained to patient. 14:20:26 Pre-op teaching completed and patient verbalized understanding. 14:20:30 Family in waiting room. 14:20:32 Patient NPO since Midnight. 14:20:33 Is the patient allergic to Iodine/contrast media? No. 14:20:35 Is patient on blood thinner?Yes 14:21:25 LAST DOSE OF XERALTO 10/10/18. 14:21:32 Patient diabetic? No. 14:21:36 Previous problem with sedation/anesthesia? No ? 14:21:38 Snore? No 14:21:39 Sleep apnea? No 14:21:40 Deviated septum? No 14:21:40 Opens mouth fully? Yes 14:21:41 Sticks out tongue? Yes 14:21:43 Airway obstruction? No ? 14:21:48 Dentures? Yes IN 14:21:52 Pre procedure: right dorsailis pedis pulse 1+ Palpable, but thready & weak; easily obliterated 14::54 Patient pain scale 0/10 ?. 14:21:59 IV patent on arrival in left forearm with 0.9% NaCl at [facility]. 14:22: Lab results completed and on chart. 14:22:04 Right groin area was prepped with chlora-prep and draped in sterile fashion 14:: Alarms reviewed by R. N. 14:: Sharps counted by scrub and verified by R.N. 14:26:55 Use device set Femoral Dx 14:26:56 ACIST Syringe (32334) opened to sterile field. 14:26:56 Bag Decanter (2002S) opened to sterile field. 14:26:57 Medline Cath Pack ([id number]) opened to sterile field. 14:26:57 DIAGNOSTIC WIRE .035 260cm J wire (479683) opened to sterile field. 14:26:59 ACIST Hand Control (12768) opened to sterile field. 14:26:59 ACIST Manifold (64440) opened to sterile field. 14:27:00 DIAGNOSTIC Multipack 5Fr catheter set ([id number]) opened to sterile field. 14:27:00 Tegaderm 4 x 4 (1626W) opened to sterile field. 14:27:02 SHEATH 5FR Hegins (CAX994) opened to sterile field. 14:27:11 Physician arrived 14::12 --------ALL STOP TIME OUT------ 14:27:12 Final Timeout: patient, procedure, and site verified with staff and physician. All members of the team are in agreement. 14:27:19 Right groin site verified by team. 14::22 Physical assessment completed. ASA score P 2 - A patient with mild systemic disease as per Guillaume Chery MD. 14:: Sedation plan: IV Moderate Sedation Medication:Versed, Fentanyl 14:: Versed 2 mg I.V. was administered by Rosalinda Silva RN; for sedation; 14::29 Fentanyl 100 mcg I.V. was administered by Rosalinda Silva RN; for sedation; 14:32:25 Zero performed for pressure channel P1 14:32:28 Zero performed for pressure channel P1 14:35:28 Procedure started. 14:35:43 Local anesthetic to right femoral artery with Lidocaine 2% by Guillaume Chery MD.INITIAL ACCESS ONLY 14:39:54 Versed 2 mg I.V. was administered by Rosalinda Silva RN; for sedation; 14:39:54 SHEATH 5FR Hegins (TXS255) opened to sterile field. 14:39:59 Fentanyl 50 mcg I.V. was administered by Rosalinda Silva RN; for sedation; 14:40:00 A 5 Fr sheath was inserted into the Right Femoral vein 14:40:47 A 5 Fr sheath was inserted into the Right Femoral artery 14:41:13 A MULTIPACK JL 4.0 5Fr catheter was advanced over the wire and used for Procedure. 14:45:04 LCA angiography performed. 14:45:06 Catheter exchanged over wire. 14:45:15 A MULTIPACK 3DRC 5Fr catheter was advanced over the wire and used for Right Coronary Angiography. 14:45:24 RCA angiography performed. 14:45:25 Catheter exchanged over wire. 14:46:27 A MULTIPACK Pigtail 5 Fr catheter was advanced over the wire and used for LV Angiography. 14:47:15 LV gram done using MAGAÑA 14:47:20 EF : 50 % 14:47:31 LV hemodynamics recorded. 14:47:39 Catheter removed. 14:52:06 INFLATOR Merit BasixCompak (KQ2740) opened to sterile field. 14:52:07 GUIDE 6FR XBLAD 3.5 catheter ([id number]) opened to sterile field. 14:52:07 TUBING High Pressure Extension Tubing (Vik) ([id number]) opened to sterile field. 14:52:07 BMW 300cm Newman 2 J wire ([id number]) opened to sterile field. 14:52:20 Sheath upsized to a 6 Fr Short. 14:52:29 6 Fr XBLAD 3.5 guide catheter was inserted over the wire 14:52:40 BMW 2 wire advanced. 14:52:58 EXOSEAL 6Fr (EX600) opened to sterile field. 14:53:26 Heparin Bolus 9100 units I.V. was administered by Rosalinda Silva RN; for anticoagulation; verified with Dr. Chery 14:57:35 Place stent Inflation Number: 1 A PATRICIO OTW 3.5 x 18 stent ([id number]) was prepped and advanced across the Prox CX. The stent was deployed at 14 JEANINE for 0:19 (min:sec). 14:58:30 Stent catheter was removed intact over wire. 14:58:31 Wire removed. 14:58:32 Guide catheter removed. 14:58:46 Sheath removed intact; hemostasis achieved with Exoseal to the Right Femoral artery. 14:58:54 Contrast amount:Isovue 300 97ml. 15:00:14 Fluoroscopy time 03.20 minutes. 15:00:22 Flurop Dose total: 764 15:00: Fluoroscopy dose: 764 mGy 15:00:59 Sheath removed intact; hemostasis achieved with Exoseal to the Right Femoral vein. 15:01:08 EXOSEAL 5Fr (EX500) opened to sterile field. 15:01:14 Insertion/operative site no bleeding no hematoma. 15:01:21 Procedure ended.(Physican Out) 15:01:41 Post-op/insertion site Right Femoral artery dressed using a 4 x 4 and Tegaderm. 15:01:45 Post right femoral artery:stable 15:01:46 Post Procedure Pulses reassessed and unchanged 15:01:49 Post procedure: right dorsailis pedis pulse 1+ Palpable, but thready & weak; easily obliterated. 15:01:52 Post procedure rhythm: sinus rhythm 15:01:54 Post procedure instruction explained to patient.Patient verbalizes understanding. 15:02:09 Procedure type changed to Cath procedure, Diagnostic procedure, LHC, LHC w/Coronaries, PCI procedure, Coronary Stent, Coronary Stent Initial 15:02:13 Procedure and supply charges have been captured, reviewed, submitted and are correct. 15:02:41 Procedure Complication : No complications 15:05:47 Plavix 600 mg P.O. was administered by Rosalinda Silva RN; for antiplatelet therapy; 15:08:13 Vital chart was stopped 15:08:13 See physician's report for complete and final results. 15:08:16 Report given to Pre/Post Procedure Room. 15:08:20 Patient transfered to Pre/Post Procedure Room with Stretcher. 15::22 Procedure ended. 15:08:22 Full Disclosure recording stopped 15:08:40 ACC-PCI Only Patient was given prescriptions, or instructed by Guillaume Chery MD to start/continue the following medications upon discharge: Plavix 15:08:42 End room use (Document Last) Intervention Summary Intervention Notes Time ActionType Lesion and Equipment Action# Pressure Duration Attributes Used 14:57:35 Place stent Prox CX PATRICIO OTW 3.5 1 14 00:19 x 18 stent ([id number]) Device Usage Item Name Manufacture Quantity Catalog Hospital Part Current Mini mal Lot# / Number Charge Number Stock Stock Serial# Code ACIST Syringe Acist 1 87566 582982 640409 224454 20 (94602) Medical Systems Inc Bag Decanter Microtek 1 2001S 536082 98367 914102 5 () Medical Inc. Medline Cath Medline 1 [id number] 126503 76512 893897 5 Pack ([id number]) DIAGNOSTIC St Charlie 1 504745 470222 872219 259137 30 WIRE .035 260cm J wire (060268) ACIST Hand Acist 1 21720 948732 004644 933350 5 Control Medical (00764) Systems Inc ACIST Acist 1 75836 365724 660866 556770 5 Manifold Medical (04259) Systems Inc DIAGNOSTIC Cardinal 1 YL7835 150938 19949 619784 30 Multipack 5Fr Health catheter set (IZ3372) Tegaderm 4 x 3M 1 1626W 272409 404780 020805 5 4 (1626W) SHEATH 5FR Terumo 2 ZMJ842 678233 756619 645657 5 Hegins (MTD209) MULTIPACK JL Cardinal 1 000241 5 4.0 5Fr Health catheter MULTIPACK Cardinal 1 678768 5 3DRC 5Fr Health catheter MULTIPACK Cardinal 1 591641 5 Pigtail 5 Fr Health catheter INFLATOR Merit 1 QA9655 396681 414052 663712 15 [facility] Medical BasixCompak (WH7606) GUIDE 6FR Cardinal 1 [id number] 748146 465427 343863 10 XBLAD 3.5 Health catheter ([id number]) TUBING High Merit 1 [id number] 295595 03467 509033 10 Pressure Medical Extension Tubing (Chery) (UH3532V) BMW 300cm Read 1 [id number] 358873 312931 402224 5 Newman 2 J Vascular wire ([id number]) EXOSEAL 6Fr Cardinal 1 EX600 784837 966769 051958 10 (EX600) Health PATRICIO OTW 3.5 Medtronic 1 [id number] 296815 9581756 623081 5 [id number] x 18 stent ([id number]) EXOSEAL 5Fr Cardinal 1 EX500 150428 517435 161272 10 (EX500) Health Signature Audit Electra Stage Time Signature Unsigned Intra-Procedure 10/14/2018 José Miguel VARELA(Sandro) 3:09:07 PM Signatures Monitor : José Miguel Lugo RT Signature : Date : Time : [address] [place] [address]
[2018-10-14 12:32] VITALS: BP 183/91; Ht 177.8 cm; Wt 90.9 kg
[2018-10-14 12:43] LABS: BASOPHILS 0.5 % (0-2); EOSINOPHILS 2.3 % (0-7); HEMATOCRIT 44.7 % (42.0-54.0); HEMOGLOBIN 15.5 g/dL (13.5-17.5); IMMATURE GRANULOCYTES 0.4 % (0-5); LYMPHOCYTES 26.5 % (15-50); MCH 29.2 pg (26.0-34.0); MCHC 34.7 g/dL (31.0-37.0); MCV 84.2 fL (80.0-100.0); MEAN PLATELET VOLUME 9.6 fL (7.4-10.4); MONOCYTES 9.5 % (2-11); NEUTROPHILS 60.8 % (40-80); PLATELET COUNT 157 10x3/uL (130-400); RBC 5.31 10x6/uL (4.20-6.10); RDW 14.5 % (11.5-14.5); WBC 7.4 10x3/uL (4.8-10.8)
[2018-10-14 12:49] LABS: ANION GAP 13.2 mmol/L (8-16); CALCIUM 9.1 mg/dL (8.5-10.1); CARBON DIOXIDE 25.8 mmol/L (21.0-32.0); CREATININE - SERUM 1.6 mg/dL (0.6-1.3)
[2018-10-14] MEDS ORDERED: PLAVIX75 MG PO (15:31)
== END 2018-10-14 19:35 | disposition home or self-care (01) ==
LOC: D.CATH 11:45
PROVIDERS: Internal Medicine Cardiovascular Disease
DX: I25.119 Atherosclerotic heart disease of native coronary artery with unspecified angina pectoris (principal); Z86.718 Personal history of other venous thrombosis and embolism; Z86.711 Personal history of pulmonary embolism; Z86.73 Personal history of transient ischemic attack (TIA), and cerebral infarction without residual deficits; E78.5 Hyperlipidemia, unspecified; I10 Essential (primary) hypertension; I48.91 Unspecified atrial fibrillation; M06.9 Rheumatoid arthritis, unspecified; Z98.1 Arthrodesis status; Z79.01 Long term (current) use of anticoagulants; Z79.02 Long term (current) use of antithrombotics/antiplatelets; Z79.891 Long term (current) use of opiate analgesic; Z79.899 Other long term (current) drug therapy
CPT/HCPCS: 93458; C9600

== ENCOUNTER → 2020-05-04 11:45 | Outpatient (CLI) | payer MEDICARE, OTHER ==
[2018-10-14 12:32] VITALS: BMI 28.7
== END | disposition home or self-care (01) ==
LOC: D.HCCARDIO 11:45
PROVIDERS: ATTEND Internal Medicine Cardiovascular Disease
DX: I25.10 Atherosclerotic heart disease of native coronary artery without angina pectoris (principal)

== ENCOUNTER 2020-05-13 06:31 | Outpatient (CLI) | payer MEDICARE, OTHER ==
[~2020-05-13] VITALS: Ht 177.8 cm; Wt 79.1 kg
--- NOTE | ~2020-05-13 | HEMODYNAMI ---
PATIENT:NISREEN GAR MEDICAL RECORD: [id number] : 43 LOCATION:[facility] ADMISSION DATE: 05/13/20 Generatedon:05/13/202010:05 Patient name: NISREEN GAR Patient #: [id number] SSN: [id number] : 1945 Date of study: 05/13/2020 Page: Of Hemodynamic Procedure Report Patient Data Patient Demographics Procedure consent was obtained First Name: NISREEN Gender: Male Last Name: RIN : 1945 Middle Initial: R Age: 75 year(s) Patient #: [id number] Race: SSN: [id number] Additional ID: [id number] Contact details [address]: [address] [place] [address] State: [place] City: [place] Zip code: [address] Past Medical History Allergies Allergen Reaction Date Comments Reported Other allergy 08/11/2017 Metronidazole, oxycodone, Hydrocodone Other allergy 01/17/2018 Hydrocodone, Oxycodone, Flaygl Other allergy 05/13/2020 CODONE'S ALL Admission Admission Data Admission Date: 05/13/2020 Admission Time: 6:31 Arrival Date: 05/13/2020 Arrival Time: 0:00 Admit Source: Other Insurance Payor: Medicare [facility] #: [id number] Height (in.): 70 BSA: 1.97 (m2) Height (cm.): 177.8 BMI: 25.02 (kg/m2) Weight (lbs.): 174.36 Weight (kg.): 79.09 Lab Results Lab Result Date: 05/13/2020 Lab Result Time: 0:00 Biochemistry Name Units Result Min Max BUN mg/dl 33 --(----)-* 7 18 Creatinine mg/dl 1.8 --(----)-* 0.6 1.3 eGFR ml/min 39 *-(----)-- 90 120 NONAFRICAN CBC Name Units Result Min Max Hematocrit % 45.5 --(-*--)-- 42 54 Hemoglobin g/dl 15.1 --(-*--)-- 13.5 17.5 Procedure Procedure Types Cath Procedure Diagnostic Procedure [facility] w/Coronaries FFR/IVUS FFR Initial Sedation Charges Moderate Sedation up to 30 minutes Procedure Description Procedure Date Procedure Date: 05/13/2020 Procedure Start Time: 9:36 Procedure End Time: 10:03 Procedure Staff Name Function Guillaume Chery MD Performing Physician Pam Pandya RT Monitor Elke Blood RT Scrub Zeke Castellanos RN Nurse Procedure Data Cath Procedure Fluoroscopy Diagnostic fluoroscopy Total fluoroscopy Time: 4.1 time: 4.1 min min Diagnostic fluoroscopy Total fluoroscopy dose: 656 dose: 656 mGy mGy Contrast Material Contrast Material Type Amount (ml) Isovue 300 70 Entry Location Entry Primary Successful Side Size Upsize Upsize Entry Closure Succes sful Closure Location (Fr) 1 (Fr) 2 (Fr) Remarks Device Remarks Femoral Right 5 Fr 6 Fr Exoseal artery Short Estimated blood loss: 10 ml Diagnostic catheters Device Type Used For End Catheter Placement MULTIPACK JL 4.0 5Fr Procedure catheter MULTIPACK 3DRC 5Fr Procedure catheter MULTIPACK Pigtail 5 Fr Ventriculography catheter Procedure Complications No complications Procedure Medications Medication Administration Route Dosage Oxygen etCO2 Nasal cannula 2 l/min Lidocaine 2% added to field 20 Heparin Flush Bag added to field 2 bags (1000units/500ml NS) 0.9% NaCl I.V. 100 ml/hr Versed I.V. 1 mg Fentanyl I.V. 50 mcg Versed I.V. 1 mg Fentanyl I.V. 50 mcg Heparin Bolus I.V. 3000 units Hemodynamics Rest BSA: 1.97 (m2) HGB: 15.1 (g/dl) O2 Consumption: Estimated: 216.55 (ml/min) O2 Co nsumption indexed: Estimated:109.92 (ml/min/m) Heart Rate: 57 (bpm) Pressure Samples Time Site Value (mmHg) Purpose Heart Use Rate(bpm) 9:48 LV 132/-2,12 Snapshot 68 9:49 AO 138/61(92) Pullback 68 9:49 LV 137/-2,-1 Pullback 68 Gradients Valve Time Site 1 Site 2 Mean SEP/DFP Peak To Heart Use (mmHg) (sec/min) Peak Rate (mmHg) (bpm) Aortic 9:49 LV AO 0 12 0 68 137/-2,-1 138/61(92) Calculations Valve P-P Mean Valve Index Valve Source Name Gradient Area Flow (cm2) Aortic 0 0 0 0 Snapshots Pre Cath Intra NCS Post Cath Vital Signs Time Heart Resp SPO2 etCO2 NIBP (mmHg) Rhythm Pain Sedation Rate (ipm) (%) (mmHg) Status Level (bpm) 9:17:50 67 14 91 0 135/92(112) NSR 0 (11) 10(A) , No pain 9:22:06 58 12 100 2.2 128/72(107) NSR 0 (11) 10(A) , No pain 9:26:20 57 13 99 2.2 126/71(102) NSR 0 (11) 9(A) , No pain 9:30:32 59 13 99 4.4 119/49(98) NSR 0 (11) 9(A) , No pain 9:34:50 61 11 98 14.9 111/57(87) NSR 0 (11) 9(A) , No pain 9:39:02 61 11 99 5.9 127/64(98) NSR 0 (11) 9(A) , No pain 9:43:18 61 12 99 1.4 123/68(104) NSR 0 (11) 9(A) , No pain 9:47:34 64 12 99 12.7 129/67(102) NSR 0 (11) 9(A) , No pain 9:51:50 66 12 99 17.9 129/64(101) NSR 0 (11) 9(A) , No pain 9:56:06 65 12 100 20.1 130/65(110) NSR 0 (11) 10(A) , No pain 10:00:22 67 14 100 11.9 133/73(109) NSR 0 (11) 10(A) , No pain Medications Time Medication Route Dose Verified Delivered Reason Notes Effectiveness by by 9:16:58 Oxygen etCO2 2 Guillaume Buffie used for Nasal l/min Vik Castellanos supply chain specialist cannula 9:17:04 Lidocaine 2% added 20ml Guillaume Guillaume for local to vial Vik Chery MD anesthetic field 9:17:11 Heparin Flush added 2 Guillaume Guilluame used for Bag to bags Vik Chery MD procedure (1000units/500ml field NS) 9:17:20 0.9% NaCl I.V. 100 Guillaume Buffie used for ml/hr Vik Castellanos RN procedure 9:21:39 Versed I.V. 1 mg Guillaume Buffie for sedation Vik Castellanos RN 9:21:46 Fentanyl I.V. 50 Guillaume Buffie for sedation mcg Vik Castellanos RN 9:30:40 Versed I.V. 1 mg Guillaume Buffie for sedation Vik Castellanos RN 9:30:44 Fentanyl I.V. 50 Guillaume Buffie for sedation mcg Vik Castellanos RN 9:55:00 Heparin Bolus I.V. 3000 Guillaume Buffie for verifi ed units Vik Castellanos RN anticoagulation with dr chery Procedure Log Time Note 8:49:19 Informed consent obtained and on chart 8:49:45 Diagnostic Cath Status : Elective 8:51:38 Lab Result : eGFR NONAFRICAN 39 ml/min 8:51:38 Lab Result : Hemoglobin 15.1 g/dl 8:51:38 Lab Result : BUN 33 mg/dl 8:51:38 Lab Result : Creatinine 1.8 mg/dl 8:51:38 Lab Result : Hematocrit 45.5 % 8:52:06 Arrival Date: 05/13/2020 12:00:00 AM 8:52:07 Admit Source: Other 8:52:10 Patient Height : 70 inches 8:52:19 Patient Weight : 174.36 lbs 8:52:25 Insurance Payor : Medicare 8:58:21 Procedure Status Elective Heart Cath (OP). 8:58:23 Zeke Castellanos RN sent for patient. Start room use. 8:58:25 Time tracking: Regular hours (M-F 7:00 - 5:00) 8:58:30 Plan of Care:Hemodynamics will remain stable., Cardiac rhythm will remain stable., Comfort level will be maintained., Respiratory function will remain adequate., Patient/ family verbilizes understanding of procedure., Procedure tolerated without complication., Recovers from procedure without complications.. 9:00:25 Patient received from Pre/Post Procedure Room to [facility] 1 Alert and oriented. Tansferred to table in Supine position. 9:06:35 Warm blankets applied, and romulo hugger turned on for patient comfort. 9:06:35 Correct patient and procedure confirmed by team. 9:06:36 ECG and BP/O2 sat monitors applied to patient. 9:06:52 H&P Date Dictated: 04/15/2020 Within 30 days and on chart., H&P Addendum completed by physician on day of procedure. (MUST COMPLETE FOR ALL OUTPATIENTS). 9:06:53 Pre-procedure instructions explained to patient. 9:06:55 Family in patients room. 9:06:57 Patient NPO since Midnight. 9:07:23 Patient allergic to Other allergyCODONE'S ALL 9:07:26 Is the patient allergic to Iodine/contrast media? No. 9:07:28 Was the patient premedicated? Yes 9:07:30 Is patient on blood thinner?Yes 9:07:56 XERELTO ON 05/10/20 9:08:00 If diabetic: On Metformin? No 9:08:05 Snore? Yes 9:08:06 Sleep apnea? No 9:08:12 Dentures? Yes TIGHT 9:08:17 Patient pain scale 0/10 ?. 9:08:26 IV patent on arrival in left forearm with 0.9% NaCl at KVO. 9:08:30 Lab results completed and on chart. 9:08:52 Stress Test: yes; abnormal INFERIOR LATERAL 9:09:15 Right groin area was prepped with chlora-prep and draped in sterile fashion 9:09:16 Alarms reviewed by R. N. 9:09:17 Sharps counted by scrub and verified by R.N. 9:16:48 Vital chart was started 9:16:58 Oxygen 2 l/min etCO2 Nasal cannula was administered by Zeke Castellanos RN; used for procedure; Verbal order read back and verified. 9:17:04 Lidocaine 2% 20ml vial added to field was administered by Guillaume Chery MD; for local anesthetic; Verbal order read back and verified. 9:17:11 Heparin Flush Bag (1000units/500ml NS) 2 bags added to field was administered by Guillaume Chery MD; used for procedure; Verbal order read back and verified. 9:17:20 0.9% NaCl 100 ml/hr I.V. was administered by Zeke Castellanos RN; used for procedure; Verbal order read back and verified. 9:18:43 Physician arrived 9:18:48 Use device set Femoral Dx 9:20:11 ACIST Syringe (38481) opened to sterile field. 9:20:11 Bag Decanter (2002S) opened to sterile field. 9:20:11 Medline Cath Pack ([id number]) opened to sterile field. 9:20:12 ACIST Hand Control (74344) opened to sterile field. 9:20:13 ACIST Manifold (53683) opened to sterile field. 9:20:14 DIAGNOSTIC Multipack 5Fr catheter set (CQ3721) opened to sterile field. 9:20:14 Tegaderm 4 x 4 (1626W) opened to sterile field. 9:20:16 SHEATH 5FR Oral (DUR677) opened to sterile field. 9:20:17 EMERALD Guide Wire (927-897) opened to sterile field. 9:20:34 Baseline sample Acquired. 9:20:41 Rhythm: sinus rhythm 9:20:43 Full Disclosure recording started 9:20:53 --------ALL STOP TIME OUT------ 9:20:53 Final Timeout: patient, procedure, and site verified with staff and physician. All members of the team are in agreement. 9:20:55 Right groin site verified by team. 9:21:00 Fire Safety Assessment: A--An alcohol-based skin anteseptic being used preoperatively., C--Open oxygen or nitrous oxide is being used., D--An ESU, laser, or fiber-optic light is being used. 9:21:05 Physical assessment completed. ASA score P 2 - A patient with mild systemic disease as per Guillaume Chery MD. 9:21:10 2) 60-89 Mildly reduced kidney function, and other findings (as for stage 1) point to kidney disease. 9:21:14 Maximum allowable contrast dose (3.7 X eGFR X 0.75)110 ml. 9:21:20 Sedation plan: IV Moderate Sedation Medication:Versed, Fentanyl 9:21:39 Versed 1 mg I.V. was administered by Zeke Castellanos RN; for sedation; Verbal order read back and verified. 9:21:46 Fentanyl 50 mcg I.V. was administered by Zeke Castellanos RN; for sedation; Verbal order read back and verified. 9:29:03 Zero performed for pressure channel P1 9:30:40 Versed 1 mg I.V. was administered by Zeke Castellanos RN; for sedation; Verbal order read back and verified. 9:30:44 Fentanyl 50 mcg I.V. was administered by Zeke Castellanos RN; for sedation; Verbal order read back and verified. 9:36:09 Procedure started. 9:36:22 Local anesthetic to right femoral artery with Lidocaine 2% by Guillaume Chery MD.INITIAL ACCESS ONLY 9:36:33 A 5 Fr sheath was inserted into the Right Femoral artery 9:42:14 A MULTIPACK JL 4.0 5Fr catheter was advanced over the wire and used for Procedure. 9:42:16 LCA angiography performed. 9:43:39 Catheter removed. 9:48:34 A MULTIPACK 3DRC 5Fr catheter was advanced over the wire and used for Procedure. 9:48:37 RCA angiography performed. 9:48:38 Catheter removed. 9:48:44 A MULTIPACK Pigtail 5 Fr catheter was advanced over the wire and used for Ventriculography. 9:48:46 LV gram done using MAGAÑA 9:49:21 EF : 40 % 9:50:36 Catheter removed. 9:50:39 EXOSEAL 5Fr (EX500) opened to sterile field. 9:53:11 GUIDE 6FR XBLAD 3.5 catheter ([id number]) opened to sterile field. 9:53:12 SHEATH 6FR Oral (PVC271) opened to sterile field. 9:53:13 INFLATOR Merit BasixCompak (PD7798) opened to sterile field. 9:53:14 [place] Verrata Plus pressure wire (37193H) opened to sterile field. 9:53:29 Sheath upsized to a 6 Fr Short. 9:53:54 6 Fr XBLAD3.5 guide catheter was inserted over the wire 9:55:00 Heparin Bolus 3000 units I.V. was administered by Zeke Castellanos RN; for anticoagulation; verified with dr chery Verbal order read back and verified. 9:55:03 TUBING High Pressure Extension Tubing (Vik) (WN5902G) opened to sterile field. 9:55:12 FFR/IFR wire advanced. 9:58:26 mLAD lesion measured at .94 with IFR 9:58:37 Sheath removed intact; hemostasis achieved with Exoseal to the Right Femoral artery. 9:58:49 EXOSEAL 6Fr (EX600) opened to sterile field. 9:58:53 Procedure ended.(Physican Out) 9:59:08 Fluoroscopy time 04.10 minutes. 9:59:13 Flurop Dose total: 656 9:59:13 Fluoroscopy dose: 656 mGy 9:59:18 Dose Area Product 36135 mGy/cm. 9:59:25 Contrast amount:Isovue 300 70ml. 9:59:27 Maximum allowable dose exceeded? No. 9:59:34 Insertion/operative site no bleeding no hematoma. 9:59:39 Post right femoral artery:stable 9:59:46 Post-procedure physical assessment completed. ASA score P 2 - A patient with mild systemic disease as per Guillaume Chery MD. 9:59:49 Post procedure rhythm: unchanged. 9:59:52 Estimated blood loss: 10 ml 9:59:56 Post procedure instruction explained to patient.Patient verbalizes understanding. 10:01:32 Procedure type changed to Cath procedure, Diagnostic procedure, LHC, [facility] w/Coronaries, FFR/IVUS, FFR Initial, Sedation Charges, Moderate Sedation up to 30 minutes 10:02:04 Procedure and supply charges have been captured, reviewed, submitted and are correct. 10:02:52 Procedure Complication : No complications 10:02:54 Vital chart was stopped 10:02:56 [facility] Findings: mild to moderate CAD (<70%) 10:02:59 Report given to Pre/Post Procedure Room. 10:03:03 Patient transfered to Pre/Post Procedure Room with Stretcher. 10:03:06 Procedure ended. 10:03:06 Full Disclosure recording stopped 10:03:09 End room use (Document Last) 10:03:20 ACT drawn and resulted at 212 seconds. (normal therapeutic range 180-240 seconds). Device Usage Item Name Manufacture Quantity Catalog Hospital Part Current Minima l Lot# / Number Charge Number Stock Stock Serial# Code ACIST Acist 1 81250 038938 364371 448978 20 Syringe LiveHotSpot (57675) Systems Inc Bag Microtek 1 008587 04226 082683 5 Decanter Medical Inc. () Medline Medline 1 [id number] 822018 86370 672808 5 Cath Pack ([id number]) ACIST Hand Acist 1 48782 562880 608304 000059 5 Control Medical (21566) Systems Inc ACIST Acist 1 34505 944526 992033 521865 5 Manifold Medical (85995) Systems Inc DIAGNOSTIC Cardinal 1 WN5418 768039 25828 656334 30 Multipack Health 5Fr catheter set (YH7853) Tegaderm 4 3M 1 1626W 354438 140766 170597 5 x 4 (1626W) SHEATH 5FR Terumo 1 JWZ485 222434 288882 406954 5 Oral (WMF701) EMERALD Cardinal 1 502-455 202076 169314 135437 5 Guide Wire Health (502-455) MULTIPACK Cardinal 1 354284 5 JL 4.0 5Fr Health catheter MULTIPACK Cardinal 1 809189 5 3DRC 5Fr Health catheter MULTIPACK Cardinal 1 884122 5 Pigtail 5 Health Fr catheter EXOSEAL 5Fr Cardinal 1 EX500 947453 799624 922563 10 (EX500) Health GUIDE 6FR Cardinal 1 [id number] 569862 627502 818987 10 XBLAD 3.5 Health catheter ([id number]) SHEATH 6FR Terumo 1 ZSY248 502868 404891 249442 40 Oral (AYL621) INFLATOR Merit 1 TE3900 514901 876463 914534 15 [facility] Medical BasixCompak (MT3871) [place] 1 09876Z 572688 162031767 475845 5 Verrata Plus pressure wire (67962F) TUBING High Merit 1 [id number] 124438 68215 775321 10 Pressure Medical Extension Tubing (Chery) ([id number]) EXOSEAL 6Fr Cardinal 1 EX600 827868 881610 304103 10 (EX600) Health Signature Audit [place] Stage Time Signature Unsigned Intra-Procedure 05/13/2020 Pam Pandya 10:04:58 AM RT(R) Intra-Procedure 05/13/2020 Zeke Castellanos RN 10:05:24 AM Intra-Procedure 05/13/2020 Guillaume Chery MD 10:05:49 AM [id number] [place] [address]
[2020-05-13] MEDS ORDERED: NORVASC10 MG PO (07:24)
[2020-05-13] MEDS ORDERED: XARELTO15 MG PO (07:26)
[2020-05-13 07:57] LABS: BASOPHILS 0.8 % (0-2); EOSINOPHILS 3.5 % (0-7); HEMATOCRIT 45.5 % (42.0-54.0); HEMOGLOBIN 15.1 g/dL (13.5-17.5); IMMATURE GRANULOCYTES 0.3 % (0-5); LYMPHOCYTES 27.6 % (15-50); MCHC 33.2 g/dL (31.0-37.0); MCV 84.3 fL (80.0-100.0); MEAN PLATELET VOLUME 8.9 fL (7.4-10.4); MONOCYTES 9.5 % (2-11); NEUTROPHILS 58.3 % (40-80); PLATELET COUNT 157 10x3/uL (130-400); RDW 14.7 % (11.5-14.5); WBC 6.7 10x3/uL (4.8-10.8)
[2020-05-13 07:58] VITALS: BP 152/77; Ht 177.8 cm; Wt 79.1 kg
[2020-05-13 08:18] LABS: ANION GAP 11.5 mmol/L (8-16); CALCIUM 9.1 mg/dL (8.5-10.1); CARBON DIOXIDE 24.5 mmol/L (21.0-32.0); CHOL - HDL RATIO 5.2 ratio (2.3-4.9); CREATININE - SERUM 1.8 mg/dL (0.6-1.3); LDL-HDL RATIO 3.3 ratio (1.5-3.5)
--- NOTE | 2020-05-13 10:19 | NUR ---
PT ARRIVED BY STRETCHER. PLACED ON MONITORS. ASSESSMENT COMPLETED. VSS AT THIS TIME. CALL LIGHT WITHIN REACH. FAMILY AT BEDSIDE.
--- NOTE | 2020-05-13 10:35 | NUR ---
RIGHT GROIN DRESSING C/D/I. NO S/S OF HEMATOMA NOTED. CALL LIGHT WITHIN REACH. VSS AT THIS TIME. DENIES NAUSEA/PAIN.
--- NOTE | 2020-05-13 11:05 | NUR ---
RIGHT GROIN DRESSING C/D/I. NO S/S OF HEMATOMA NOTED. CALL LIGHT WITHIN REACH. VSS AT THIS TIME. TOLERATING SIPS OF WATER. DENIES NAUSEA/PAIN.
--- NOTE | 2020-05-13 11:35 | NUR ---
RIGHT GROIN DRESSING C/D/I. NO S/S OF HEMATOMA NOTED. CALL LIGHT WITHIN REACH. VSS AT THIS TIME. NO NEEDS.
--- NOTE | 2020-05-13 12:00 | NUR ---
RIGHT GROIN DRESSING C/D/I. NO S/S OF HEMATOMA NOTED. CALL LIGHT WITHIN REACH. VSS AT THIS TIME. CALL LIGHT WITHIN REACH. HEAD OF BED INC TO 30 DEGREES. TOLERATED WELL. SET UP WITH SANDWICH TRAY AND DRINK. DENIES NAUSEA.
--- NOTE | 2020-05-13 12:45 | NUR ---
RIGHT GROIN DRESSING C/D/I. NO S/S OF HEMATOMA NOTED. CALL LIGHT WITHIN REACH. VSS AT THIS TIME. PIV D/C'D WITH CATH TIP INTACT. TOLERATED WELL. PT INSTRUCTED TO GET UP AND DRESSED AT THIS TIME.
--- NOTE | 2020-05-13 13:00 | NUR ---
DISCUSSED DISCHARGE INSTRUCTIONS WITH PT. HE VOICED UNDERSTANDING. PT AMBULATED TO RESTROOM AND VOIDED WITHOUT DIFFICULTY. STEADY GAIT NOTED.
--- NOTE | 2020-05-13 13:15 | NUR ---
PT TAKEN DOWN TO VEHICLE BY WHEELCHAIR. RIGHT GROIN DRESSING C/D/I. NO S/S OF HEMATOMA NOTED. NO S/S OF DISTRESS NOTED. ALL BELONGINGS AND PAPERWORK IN HAND.
== END 2020-05-13 13:15 | disposition home or self-care (01) ==
LOC: D.CATH 06:31
PROVIDERS: ATTEND Internal Medicine Cardiovascular Disease
DX: I25.119 Atherosclerotic heart disease of native coronary artery with unspecified angina pectoris (principal); R94.39 Abnormal result of other cardiovascular function study; I10 Essential (primary) hypertension; I34.0 Nonrheumatic mitral (valve) insufficiency; I48.91 Unspecified atrial fibrillation

== ENCOUNTER → 2021-02-25 09:29 | Outpatient (CLI) | payer MEDICARE, OTHER ==
[2020-05-13 07:58] VITALS: BMI 25.0
[~2021-02-25 09:29] MED LIST changes: +NORVASC10 MG PO
== END | disposition home or self-care (01) ==
LOC: D.MRI 02-23 11:00
PROVIDERS: ATTEND Family Medicine
DX: M54.12 Radiculopathy, cervical region (principal)